=== PATIENT | male | born 1930 | race Caucasian/White ===

== ENCOUNTER 2017-01-12 01:01 | Inpatient (IN) ==
--- OUTSIDE RECORDS SUMMARY | 2017-01-12 01:12 | External Medical Summary ---
:1930 Author Organization [facility]. Summary purpose CCDA Sent to [facility] Chief Complaint and Reason for Visit No authorized Reason for Visit (Admitting Diagnosis) is available for this visit. Problem list No authorized problems tracked for continuity of care are available for this visit. Encounters No authorized problems tracked for encounter diagnoses are available for this visit. Medications No medications recorded for this patient visit Allergies, adverse reactions, alerts Allergen Category Ingredient Status Reaction Severity Onset No Known Allergies No Known Allergies No Known Allergies Active Immunizations No immunizations recorded for this patient visit Relevant diagnostic tests and/or laboratory data RESULTS Chemistry Group [id number]:00 Result Normal Range Units Sodium 145 134-145 mmol/L Potassium 4.2 3.6-5.0 mmol/L Chloride 106 98-107 mmol/L CO2 27 22-30 mmol/L Glucose 88 75-110 mg/dl BUN H 21 9-20 mg/dl Creatinine 1.49 0.8-1.7 mg/dl Calcium 8.6 8.4-10.2 mg/dl History of procedures Procedure Code Code Type Description Date Performed Performing Physician 95420 CPT-4 METABOLIC PANEL TOTAL 03-12-2015 MONICA MONSIVAIS Functional status No functional or cognitive status observations are available for this visit. Vital signs No authorized vital signs are available for this visit. Social history No Social History or smoking status observations were recorded for this visit. ( Unknown if ever smoked.) Treatment Plan No treatment plan text is available for this visit. Hospital discharge instructions No discharge instruction text is available for this visit.
--- OUTSIDE RECORDS SUMMARY | 2017-01-12 01:12 | External Medical Summary ---
:1930 Author Organization [facility]. Summary purpose CCDA Sent to [facility] Chief Complaint and Reason for Visit Admit Diagnosis 1 possible cellulitis Problem list No authorized problems tracked for [...] visit Relevant diagnostic tests and/or laboratory data No authorized results are available for this patient visit History of procedures No procedures recorded for this patient visit. Functional status No functional or cognitive status [...]
--- OUTSIDE RECORDS SUMMARY | 2017-01-12 01:12 | External Medical Summary ---
:1930 Author Organization [facility]. Summary purpose CCDA Sent to [facility] Chief Complaint and Reason for Visit No [...] for this patient visit History of procedures Procedure Code Code Type Description Date Performed Performing Physician 45655 CPT-4 THERAPEUTIC EXERCISES 11-10-2016 JYOTI RATZLAFF 14462 CPT-4 MANUAL THERAPY 11-10-2016 JYOTI RATZLAFF 45124 CPT-4 THERAPEUTIC EXERCISES 11-12-2016 JYOTI RATZLAFF 07018 CPT-4 MANUAL THERAPY 11-12-2016 JYOTI RATZLAFF 30081 CPT-4 THERAPEUTIC EXERCISES 11-16-2016 JYOTI RATZLAFF 82839 CPT-4 NEUROMUSCULAR 11-16-2016 JYOTI RATZLAFF REEDUCATION 65209 CPT-4 MANUAL THERAPY 11-16-2016 JYOTI RATZLAFF 66449 CPT-4 THERAPEUTIC EXERCISES 11-18-2016 JYOTI RATZLAFF 86868 CPT-4 THERAPEUTIC EXERCISES 11-24-2016 JYOTI RATZLAFF 60746 CPT-4 THERAPEUTIC EXERCISES 11-26-2016 JYOTI RATZLAFF 93113 CPT-4 NEUROMUSCULAR 11-26-2016 JYOTI RATZLAFF REEDUCATION 40404 CPT-4 MANUAL THERAPY 11-26-2016 JYOTI RATZLAFF 48176 CPT-4 THERAPEUTIC EXERCISES 11-30-2016 JYOTI RATZLAFF 99239 CPT-4 MANUAL THERAPY 11-30-2016 JYOTI RATZLAFF 62160 CPT-4 THERAPEUTIC EXERCISES 12-02-2016 JYOTI RATZLAFF 86666 CPT-4 MANUAL THERAPY 12-02-2016 JYOTI ABBOTT Functional status No functional or cognitive status [...]
--- OUTSIDE RECORDS SUMMARY | 2017-01-12 01:12 | External Medical Summary ---
:1930 Author Organization [facility]. Summary purpose CCDA Sent to [facility] Chief Complaint and Reason for Visit No [...] tests and/or laboratory data RESULTS Chemistry Group [id number] Result Normal Range Units Sodium 143 134-145 mmol/L Potassium 4.4 3.6-5.0 mmol/L Chloride 107 98-107 mmol/L CO2 H 31 22-30 mmol/L Glucose 86 75-110 mg/dl BUN H 26 9-20 mg/dl Creatinine 1.55 0.8-1.7 mg/dl eGFR 43 ml/min. Calcium 8.8 8.4-10.2 mg/dl History of procedures No procedures recorded for [...]
--- OUTSIDE RECORDS SUMMARY | 2017-01-12 01:12 | External Medical Summary ---
:1930 Author Organization [facility]. Summary purpose CCDA Sent to [facility] Chief Complaint and Reason for Visit No authorized Reason for Visit (Admitting Diagnosis) is available for this visit. Problem list No authorized problems tracked for continuity of care are available for this visit. Encounters No authorized problems tracked for encounter diagnoses are available for this visit. Medications No home medications recorded for this patient visit Allergies, [...] are available for this visit. Vital signs Type Value Date Respirations 20 93-10-192181:46 Pulse 65 10-85-458311:46 O2 Saturation 97% 05-27-687680:46 Systolic Blood Press 178mm/HG 71-06-411043:46 Diastolic Blood Pres 75mm/HG 33-37-818827:46 Social history No Social History or smoking status observations were recorded for this visit. ( Unknown if ever smoked.) Treatment Plan No treatment plan text is available for this visit. Hospital discharge instructions No discharge instruction text is available for this visit.
--- OUTSIDE RECORDS SUMMARY | 2017-01-12 01:12 | External Medical Summary ---
:1930 Author Organization [facility]. Summary purpose CCDA Sent to [facility] Chief Complaint and Reason for Visit [...] Relevant diagnostic tests and/or laboratory data RESULTS CBC :35:00 Result Normal Range Units WBC 6.87 5.8-10.8 x103/mm3 Neutrophil % 65.4 50-70 % Lymph % L 18.9 20-50 % Rusk % H 11.4 1.0-9.0 % Eosinophil % 3.9 0-4 % Basophil % 0.4 0-2 % Neutrophil # 4.49 3.0-7.0 x103/mm3 Lymph # 1.30 1.0-4.0 x103/mm3 Rusk # 0.78 0.0-0.8 x103/mm3 Eosinophil # 0.27 0-0.5 x103/mm3 Basophil # 0.03 0-0.2 x103/mm3 RBC L 4.01 4.60-6.20 x103/mm3 HGB L 12.8 14.0-18.0 g/dl HCT L 38.6 42.0-52.0 % MCV H 96.3 80-94 FL MCH H 31.9 27.0-31.0 pg MCHC 33.2 32.0-36.0 g/dl RDW 12.8 12-15 % Platelet 177 150-400 x103/mm3 MPV 9.6 6.0-10.0 FL Chemistry Group :35:00 Result Normal Range Units Sodium 145 134-145 mmol/L Potassium 4.0 3.6-5.0 mmol/L Chloride 104 98-107 mmol/L CO2 27 22-30 mmol/L Glucose 79 75-110 mg/dl BUN 20 9-20 mg/dl Creatinine 1.59 0.8-1.7 mg/dl Total Protein L 6.1 6.3-8.2 g/dl Albumin L 3.3 3.5-5.0 g/dl Calcium 8.6 8.4-10.2 mg/dl Alk Phos 73 38-126 U/L AST 19 14-36 U/L ALT 24 11-66 U/L T Bili .6 0.2-1.3 mg/dl A/G Ratio 1.2 Ratio Special Chemistry Group [id number]:00 Result Normal Range Units BNP 70.1 0-100 pg/ml History of procedures Procedure Code Code Type Description Date Performed Performing Physician 55712 CPT-4 COMPLETE CBC, 05-29-2015 ADY VALDES AUTOMATED 40538 CPT-4 COMPREHEN METABOLIC 05-29-2015 ADY VALDES PANEL 49314 CPT-4 NATRIURETIC PEPTIDE 05-29-2015 ADY VALDES Functional status No functional or cognitive status [...]
--- OUTSIDE RECORDS SUMMARY | 2017-01-12 01:12 | External Medical Summary ---
:1930 Author Organization [facility]. Summary purpose CCDA Sent to [facility] Chief Complaint and Reason for Visit No [...] tests and/or laboratory data RESULTS Chemistry Group [id number]:00 Result Normal Range Units Sodium 142 134-145 mmol/L Potassium 4.1 3.6-5.0 mmol/L Chloride 107 98-107 mmol/L CO2 22 22-30 mmol/L Glucose 98 75-110 mg/dl BUN H 27 9-20 mg/dl Creatinine H 1.94 0.8-1.7 mg/dl eGFR 33 ml/min. Calcium 9.1 8.4-10.2 mg/dl History of procedures No procedures [...]
--- OUTSIDE RECORDS SUMMARY | 2017-01-12 01:12 | External Medical Summary ---
:1930 Author Organization [facility]. Summary purpose CCDA Sent to [facility] Chief Complaint and Reason for Visit [...] tests and/or laboratory data RESULTS Chemistry Group [id number]:00 Result Normal Range Units Sodium 142 134-145 mmol/L Potassium L 3.5 3.6-5.0 mmol/L Chloride 101 98-107 mmol/L CO2 30 22-30 mmol/L Glucose 96 75-110 mg/dl BUN H 30 9-20 mg/dl Creatinine H 1.91 0.8-1.7 mg/dl eGFR 33 ml/min. Calcium 8.7 8.4-10.2 mg/dl History of procedures Procedure Code Code Type Description Date Performed Performing Physician 39875 CPT-4 METABOLIC PANEL TOTAL 10-14-2016 RAISSA MONSIVAIS Functional status No functional or cognitive [...]
--- OUTSIDE RECORDS SUMMARY | 2017-01-12 01:12 | External Medical Summary ---
:1930 Author Organization [facility]. Summary purpose CCDA Sent to [facility] Chief Complaint and Reason for Visit No authorized Reason for Visit (Admitting Diagnosis) is available for this visit. Problem list Condition Status Certainty Chronicity Onset .Congestive heart failure Discharged .Edema; Pedal Resolved .Syncope Resolved Encounters The following conditions tracked for encounter diagnoses were recorded for this visit: Finding or Diagnosis Status Certainty Chronicity Onset Cardiovascular - Actual/potential for Discharged altered; Fluid overload, CHF .Congestive heart failure Discharged .Edema; Pedal Resolved .Syncope Resolved Medications Discharge Medications Status Medication Directions Current acetaminophen (TYLENOL) 500 mg: TABLET 500 MG oral EVERY FOUR HOURS NEEDED for PAIN OR FEVER Current ASPIRIN 81 mg: TAB CHEW 81 MG oral DAILY Current clopidogrel (PLAVIX) 75 mg: TABLET 75 MG oral DAILY Current furosemide (LASIX): TABLET 20 MG oral DAILY Current potassium chloride (KLOR-CON) 10 mEq: 10 MEQ oral DAILY Tab ER 12HR Current PreserVision Lutein 226 mg-200 unit-5 1 tab(s) oral DAILY mg-0.8 mg capsule Stopped aspirin 81 mg chewable tablet 81 miligram(s) oral DAILY Stopped clopidogrel 75 mg tablet 75 miligram(s) oral DAILY Stopped Fish Oil 1,000 mg capsule 1000 miligram(s) oral DAILY Stopped Lasix 40 mg tablet 40 miligram(s) oral DAILY Stopped potassium 99 mg tablet 99 miligram(s) oral DAILY Allergies, adverse reactions, alerts Allergen Category Ingredient Status Reaction Severity Onset No Known Allergies No Known Allergies No Known Allergies Active Immunizations No immunizations recorded for this patient visit Relevant diagnostic tests and/or laboratory data RESULTS :41:48 Discharge Summary [place] Chemistry Group :55:00 Result Normal Range Units Sodium 142 134-145 mmol/L Potassium 4.5 3.6-5.0 mmol/L Chloride 107 98-107 mmol/L CO2 26 22-30 mmol/L Glucose 97 75-110 mg/dl BUN H 32 9-20 mg/dl Creatinine H 1.76 0.8-1.7 mg/dl eGFR 37 ml/min. Calcium L 8.3 8.4-10.2 mg/dl :33:00 Result Normal Range Units Sodium 140 134-145 mmol/L Potassium 4.8 3.6-5.0 mmol/L Chloride 107 98-107 mmol/L CO2 26 22-30 mmol/L Glucose 100 75-110 mg/dl BUN H 34 9-20 mg/dl Creatinine H 1.78 0.8-1.7 mg/dl eGFR 36 ml/min. Calcium L 8.3 8.4-10.2 mg/dl :00:00 Result Normal Range Units Sodium 143 134-145 mmol/L Potassium 4.6 3.6-5.0 mmol/L Chloride 103 98-107 mmol/L CO2 30 22-30 mmol/L Glucose 104 75-110 mg/dl BUN H 43 9-20 mg/dl Creatinine H 2.05 0.8-1.7 mg/dl eGFR 31 ml/min. Calcium 8.8 8.4-10.2 mg/dl :50:00 Result Normal Range Units Sodium 142 134-145 mmol/L Potassium 4.8 3.6-5.0 mmol/L Chloride 103 98-107 mmol/L CO2 28 22-30 mmol/L Glucose 96 75-110 mg/dl BUN H 41 9-20 mg/dl Creatinine H 2.04 0.8-1.7 mg/dl eGFR 31 ml/min. Calcium 8.7 8.4-10.2 mg/dl 56-89-469780:05:00 Result Normal Range Units Sodium 138 134-145 mmol/L Potassium 4.8 3.6-5.0 mmol/L Chloride 103 98-107 mmol/L CO2 29 22-30 mmol/L Glucose 96 75-110 mg/dl BUN H 33 9-20 mg/dl Creatinine H 1.82 0.8-1.7 mg/dl eGFR 35 ml/min. Calcium L 8.3 8.4-10.2 mg/dl :55:00 Result Normal Range Units Sodium 141 134-145 mmol/L Potassium 4.5 3.6-5.0 mmol/L Chloride 104 98-107 mmol/L CO2 27 22-30 mmol/L Glucose 92 75-110 mg/dl BUN H 29 9-20 mg/dl Creatinine 1.57 0.8-1.7 mg/dl eGFR 42 ml/min. Calcium L 8.2 8.4-10.2 mg/dl History of procedures No procedures recorded for this patient visit. Functional status Functional Status Finding Observation Time Dexterity Left-handed :28 Weight Bearing Statu Full 77-61-008412:44 Transferring/Ambulat Uses a Device :28 Bathing Independent :28 Dressing Independent 08-18-781028:28 Eating Independent : Drinking Independent : Toileting Independent : Able to Turn Self in Independent : Stairs Independent :28 Walker Yes :28 Cognitive Status Finding Observation Time Level of Consciousne Alert :29 Oriented to Person Yes :[address] Yes :29 Oriented to Time Yes :29 Dizziness With Activity 66-71-474902:50 Comment: pt reports dizziness has improved. Eyes - [place] Yes :29 Vital signs Type Value Date Respirations 16 :26 Pulse 72 :26 O2 Saturation 94% :26 Systolic Blood Press 116mm/HG :26 Diastolic Blood Pres 67mm/HG :26 Temperature (Fahr) 97.7Degrees :26 Height 71in :27 Weight 221.3LB :27 Social history Type Value Smoking Status NEVER SMOKER Treatment Plan No treatment plan text is available for this visit. Hospital discharge instructions Diagnosis CHF Diet low sodium Activity Level as tolerated Flu Vaccine Given Current/Not Needed Pneumonia Vaccine Gi Current/Not Needed Follow up with Dr ALLAN Appointment Date and 1:30 PM Other Instructions Return or call for any return, increased or new symptoms. Elevate legs. Wear compression as needed for swelling. Lotion to lower legs as needed.
--- OUTSIDE RECORDS SUMMARY | 2017-01-12 01:12 | External Medical Summary ---
:1930 Author Organization [facility]. Summary purpose CCDA Sent to [facility] [...]
--- OUTSIDE RECORDS SUMMARY | 2017-01-12 01:12 | External Medical Summary ---
:1930 Author Organization [facility]. Summary purpose CCDA Sent to [facility] Chief Complaint and Reason for Visit [...] Code Type Description Date Performed Performing Physician 92698 CPT-4 THERAPEUTIC EXERCISES 02-11-2015 MONICA GREENE 71173 CPT-4 THERAPEUTIC EXERCISES 02-12-2015 MONICA GREENE 83455 CPT-4 GAIT TRAINING THERAPY 02-11-2015 MONICA GREENE 16478 CPT-4 GAIT TRAINING THERAPY 02-12-2015 MONICA GREENE 69917 CPT-4 THERAPEUTIC EXERCISES 02-14-2015 MONICA GREENE 64339 CPT-4 THERAPEUTIC ACTIVITIES 02-12-2015 MONICA GREENE 70015 CPT-4 THERAPEUTIC ACTIVITIES 02-14-2015 MONICA GREENE Functional status No functional or cognitive status [...]
--- OUTSIDE RECORDS SUMMARY | 2017-01-12 01:12 | External Medical Summary ---
:1930 Author Organization [employer] Care Team Providers Name Role Phone Sarbjit Casanova Provider Role Unavailable Allergies, Adverse Reactions, Alerts Substance Reaction Event Type N.K.D.A. 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 Assessment CVA (cerebral vascular accident) I63.9 Active Problem CAD (coronary artery disease) I25.10 Active Problem S/P drug eluting coronary stent Z95.5 Active placement Problem CVA (cerebral vascular accident) I63.9 Active Problem Coronary Artery Disease 414.01 Active Assessment CAD (coronary artery disease) I25.10 Active Problem s/p stenting, coronary V45.82 Active Problem Carotid Disease 437.9 Active Medications Medication Code Code Instructions Start End Date Status Dosage System Date Furosemide [facility] 28782-56 40 MG Orally qod 1/2 tab 99-25 [place] [address]-77 Orally not defined AREDS 32-62 Fish Oil [facility] 67289-36 1200 MG Orally 1 capsule 922 [place] [address]-47 99 MG Orally 1 tablet 94-01 [place] [address]-31 81 MG Orally 1 tablet 74-68 [place] B-[place] [address]-69 1000 MCG Orally 1 tablet 17-01 Once a day Clopidogrel [facility] 40365-64 75 MG Orally 1 tablet Bisulfate 14-05 Once a day Procedures Procedure Coding System Code Date Office Visit, Est Pt., Level 4 CPT-4 26368 Dec 20, 2014 Vital Signs Date/Time: Dec 20, 2014 BMI 33.67 Index Weight 215 lbs Height 67 in Cardiac Monitoring Heart Rate 68 /min Oximetry 95 % Blood Pressure Diastolic 74 mm Hg Blood Pressure Systolic 126 mm Hg Results No Known Results Summary Purpose [employer] Submission
--- OUTSIDE RECORDS SUMMARY | 2017-01-12 01:12 | External Medical Summary ---
:1930 Author Organization [facility]. Summary purpose CCDA Sent to [facility] Chief Complaint and Reason for Visit Admit Diagnosis 1 cellulitis Problem list No authorized problems tracked [...]
[2017-01-12] MEDS ORDERED: HYDROMORPHONE 2 MG/ML INJECTION IVP ONE (01:13)
--- OUTSIDE RECORDS SUMMARY | 2017-01-12 01:13 | External Medical Summary ---
:1930 Author Organization [facility]. Summary purpose CCDA Sent to [facility] Chief Complaint and Reason for Visit [...] tests and/or laboratory data RESULTS Chemistry Group [id number] Result Normal Range Units Sodium 143 134-145 mmol/L Potassium 4.1 3.6-5.0 mmol/L Chloride 103 98-107 mmol/L CO2 29 22-30 mmol/L Glucose 88 75-110 mg/dl BUN H 21 9-20 mg/dl Creatinine 1.67 0.8-1.7 mg/dl Calcium 8.7 8.4-10.2 mg/dl History of procedures Procedure Code Code Type Description Date Performed Performing Physician 38119 CPT-4 METABOLIC PANEL TOTAL 05-30-2015 MONICA MONSIVAIS Functional status No functional or [...]
--- OUTSIDE RECORDS SUMMARY | 2017-01-12 01:13 | External Medical Summary ---
:1930 Author Organization [facility]. Summary purpose CCDA Sent to [facility] Chief Complaint and Reason for [...] Code Type Description Date Performed Performing Physician 94376 CPT-4 THERAPEUTIC EXERCISES 10-29-2016 JYOTI ABBOTT 97096 CPT-4 NEUROMUSCULAR 10-29-2016 JYOTI ABBOTT REEDUCATION 71321 CPT-4 MANUAL THERAPY 10-29-2016 JYOTI ABBOTT 12479 CPT-4 PT EVAL MOD COMPLEX 30 10-29-2016 JYOTI ABBOTT [place] 22378 CPT-4 THERAPEUTIC EXERCISES 11-03-2016 JYOTI ABBOTT 28143 CPT-4 THERAPEUTIC EXERCISES 11-05-2016 JYOTI ABBOTT 66152 CPT-4 MANUAL THERAPY 11-05-2016 JYOTI ABBOTT Functional status No functional or [...]
--- OUTSIDE RECORDS SUMMARY | 2017-01-12 01:13 | External Medical Summary ---
:1930 Author Organization [facility]. Summary [facility] tests and/or laboratory data RESULTS Chemistry Group [id number]:00 Result Normal Range Units Sodium H 147 134-145 mmol/L Potassium 4.2 3.6-5.0 mmol/L Chloride 104 98-107 mmol/L CO2 30 22-30 mmol/L Glucose 91 75-110 mg/dl BUN H 35 9-20 mg/dl Creatinine H 2.07 0.8-1.7 mg/dl Calcium 8.7 8.4-10.2 mg/dl History of procedures Procedure Code Code Type Description Date Performed Performing Physician 30291 CPT-4 METABOLIC PANEL TOTAL 06-02-2015 MONICA MARTINEZ LOI Functional status No functional or cognitive status [...]
--- OUTSIDE RECORDS SUMMARY | 2017-01-12 01:13 | External Medical Summary ---
:1930 Author Organization [facility]. Summary purpose CCDA Sent to [facility] Chief Complaint and Reason for Visit No [...] Code Type Description Date Performed Performing Physician 03708 CPT-4 PT EVALUATION 12-23-2014 MONICA GREENE 54694 CPT-4 THERAPEUTIC EXERCISES 12-23-2014 MONICA GREENE 88538 CPT-4 NEUROMUSCULAR 12-23-2014 MONICA GREENE REEDUCATION 94154 CPT-4 OT EVALUATION 12-26-2014 MONICA GREENE 62213 CPT-4 THERAPEUTIC EXERCISES 12-26-2014 MONICA GREENE 76403 CPT-4 THERAPEUTIC ACTIVITIES 12-26-2014 MONICA GREENE 04678 CPT-4 THERAPEUTIC EXERCISES 12-30-2014 MONICA GREENE 63938 CPT-4 THERAPEUTIC EXERCISES 12-31-2014 MONICA GREENE 33756 CPT-4 THERAPEUTIC ACTIVITIES 12-31-2014 MONICA GREENE Functional status No functional or [...]
--- OUTSIDE RECORDS SUMMARY | 2017-01-12 01:13 | External Medical Summary ---
:1930 Author Organization [facility]. Summary purpose CCDA Sent to [facility] Chief Complaint and Reason for Visit [...]
--- OUTSIDE RECORDS SUMMARY | 2017-01-12 01:13 | External Medical Summary ---
:1930 Author Organization [facility]. Summary purpose CCDA Sent to [facility] Chief Complaint and Reason for Visit [...] diagnostic tests and/or laboratory data RESULTS CBC [id number]:25:00 WBC 10.38 Neutrophil % H 76.5 Lymph % L 12.6 Anderson % 8.4 Eosinophil % 2.3 Basophil % 0.2 Neutrophil # H 7.94 Lymph # 1.31 Anderson # H 0.87 Eosinophil # 0.24 Basophil # 0.02 RBC L 4.50 HGB 14.3 HCT 43.0 MCV H 95.6 MCH H 31.8 MCHC 33.3 RDW 12.8 Platelet 170 MPV 8.7 Chemistry Group [id number] Sodium 140 Potassium 4.0 Chloride H 108 CO2 25 Glucose 104 BUN 19 Creatinine 1.5 Calcium 8.9 History of procedures Procedure Code Code Type Description Date Performed Performing Physician 49521 CPT-4 METABOLIC PANEL TOTAL 12-13-2014 [place] [address] CPT-4 COMPLETE CBC 12-13-2014 [facility] AUTOMATED Functional status No functional or cognitive status [...]
--- OUTSIDE RECORDS SUMMARY | 2017-01-12 01:13 | External Medical Summary ---
:1930 Author Organization [facility]. Summary purpose CCDA Sent to [facility] Chief Complaint and Reason for Visit Admit Diagnosis 1 Cellulitis Problem list No authorized problems tracked for [...]
--- OUTSIDE RECORDS SUMMARY | 2017-01-12 01:13 | External Medical Summary ---
:1930 Author Organization [facility]. Summary purpose CCDA Sent to [facility] Chief Complaint and Reason for Visit [...] Code Type Description Date Performed Performing Physician 93234 CPT-4 THERAPEUTIC EXERCISES 01-08-2015 MONICA GREENE 18801 CPT-4 GAIT TRAINING THERAPY 01-08-2015 MONICA GREENE 47691 CPT-4 THERAPEUTIC EXERCISES 01-08-2015 MONICA GREENE 51186 CPT-4 THERAPEUTIC EXERCISES 01-10-2015 MONICA GREENE 07483 CPT-4 THERAPEUTIC ACTIVITIES 01-08-2015 MONICA GREENE 62742 CPT-4 THERAPEUTIC ACTIVITIES 01-10-2015 MONICA GREENE 50516 CPT-4 THERAPEUTIC EXERCISES 01-14-2015 MONICA GREENE 95631 CPT-4 NEUROMUSCULAR 01-14-2015 MONICA GREENE REEDUCATION 23197 CPT-4 GAIT TRAINING THERAPY 01-14-2015 MONICA GREENE 15311 CPT-4 THERAPEUTIC EXERCISES 01-15-2015 MONICA GREENE 98193 CPT-4 THERAPEUTIC EXERCISES 01-17-2015 MONICA GREENE 65787 CPT-4 NEUROMUSCULAR 01-17-2015 MONICA GREENE REEDUCATION 19169 CPT-4 THERAPEUTIC ACTIVITIES 01-15-2015 MONICA GREENE 52527 CPT-4 THERAPEUTIC ACTIVITIES 01-17-2015 MONICA GREENE 98423 CPT-4 SELF CARE MNGMENT 01-15-2015 MONICA GREENE TRAINING 36270 CPT-4 THERAPEUTIC EXERCISES 01-21-2015 MONICA GREENE 54406 CPT-4 NEUROMUSCULAR 01-21-2015 MONICA MARTINEZ REEDUCATION 21599 CPT-4 THERAPEUTIC ACTIVITIES 01-24-2015 MONICA GREENE 01982 CPT-4 THERAPEUTIC EXERCISES 01-28-2015 MONICA MARTINEZ 04895 CPT-4 NEUROMUSCULAR 01-28-2015 MONICA MARTINEZ REEDUCATION 81275 CPT-4 THERAPEUTIC EXERCISES 01-28-2015 MONICA MARTINEZ 04626 CPT-4 THERAPEUTIC ACTIVITIES 01-28-2015 MONICA MARTINEZ 72483 CPT-4 THERAPEUTIC ACTIVITIES 01-29-2015 MONICA GREENE Functional status No functional or [...]
--- OUTSIDE RECORDS SUMMARY | 2017-01-12 01:13 | External Medical Summary ---
:1930 Author Organization [facility]. Summary purpose CCDA Sent to [facility] Chief Complaint and Reason for Visit [...] tests and/or laboratory data RESULTS Chemistry Group [id number] Result Normal Range Units Sodium 145 134-145 mmol/L Potassium 4.4 3.6-5.0 mmol/L Chloride H 109 98-107 mmol/L CO2 26 22-30 mmol/L Glucose L 73 75-110 mg/dl BUN 18 9-20 mg/dl Creatinine 1.4 0.8-1.7 mg/dl Calcium 8.4 8.4-10.2 mg/dl History of procedures Procedure Code Code Type Description Date Performed Performing Physician 88254 CPT-4 METABOLIC PANEL TOTAL 02-21-2015 MONICA MONSIVAIS Functional status No functional or [...]
--- OUTSIDE RECORDS SUMMARY | 2017-01-12 01:13 | External Medical Summary ---
:1930 Author Organization [facility]. Summary purpose CCDA Sent to [facility] Chief Complaint and Reason for Visit [...] tests and/or laboratory data RESULTS Chemistry Group [id number] Result Normal Range Units Sodium 144 134-145 mmol/L Potassium 3.8 3.6-5.0 mmol/L Chloride 107 98-107 mmol/L CO2 27 22-30 mmol/L Glucose 89 75-110 mg/dl BUN H 26 9-20 mg/dl Creatinine 1.61 0.8-1.7 mg/dl eGFR 41 ml/min. Calcium 8.6 8.4-10.2 mg/dl History of procedures Procedure Code Code Type Description Date Performed Performing Physician [id number] CPT-4 METABOLIC PANEL TOTAL 05-19-2016 [facility] Functional status No functional or cognitive status [...]
--- OUTSIDE RECORDS SUMMARY | 2017-01-12 01:13 | External Medical Summary ---
:1930 Author Organization [facility]. Summary purpose CCDA Sent to [facility] Chief Complaint and Reason for Visit Admit Diagnosis 1 FALL, DIZZINESS, EDEMA Problem list Condition Status Certainty Chronicity Onset .Dizziness Resolved .Congestive heart failure Discharged .Edema Discharged Encounters The following conditions tracked for encounter diagnoses were recorded for this visit: Finding or Diagnosis Status Certainty Chronicity Onset .Dizziness Resolved .Congestive heart failure Discharged .Edema Discharged Medications No medications recorded for this patient visit Allergies, adverse reactions, alerts Allergen Category Ingredient Status Reaction Severity Onset No Known Allergies No Known Allergies No Known Allergies Active Immunizations No immunizations recorded for this patient visit Relevant diagnostic tests and/or laboratory data RESULTS CBC [id number]:00 Result Normal Range Units WBC L 4.77 5.8-10.8 x103/mm3 Neutrophil % 63.6 50-70 % Lymph % L 19.1 20-50 % [place] % H 11.9 1.0-9.0 % Eosinophil % H 4.8 0-4 % Basophil % 0.6 0-2 % Neutrophil # 3.03 3.0-7.0 x103/mm3 Lymph # L 0.91 1.0-4.0 x103/mm3 [place] # 0.57 0.0-0.8 x103/mm3 Eosinophil # 0.23 0-0.5 x103/mm3 Basophil # 0.03 0-0.2 x103/mm3 RBC L 3.88 4.60-6.20 x103/mm3 HGB L 12.3 14.0-18.0 g/dl HCT L 37.6 42.0-52.0 % MCV H 96.9 80-94 FL MCH H 31.7 27.0-31.0 pg MCHC 32.7 32.0-36.0 g/dl RDW 12.8 12-15 % Platelet L 126 150-400 x103/mm3 MPV 8.9 6.0-10.0 FL [id number]:10:00 Result Normal Range Units WBC L 5.72 5.8-10.8 x103/mm3 Neutrophil % H 71.2 50-70 % Lymph % L 15.9 20-50 % [place] % H 11.2 1.0-9.0 % Eosinophil % 1.4 0-4 % Basophil % 0.3 0-2 % Neutrophil # 4.07 3.0-7.0 x103/mm3 Lymph # L 0.91 1.0-4.0 x103/mm3 [place] # 0.64 0.0-0.8 x103/mm3 Eosinophil # 0.08 0-0.5 x103/mm3 Basophil # 0.02 0-0.2 x103/mm3 RBC L 3.81 4.60-6.20 x103/mm3 HGB L 12.0 14.0-18.0 g/dl HCT L 37.1 42.0-52.0 % MCV H 97.4 80-94 FL MCH H 31.5 27.0-31.0 pg MCHC 32.3 32.0-36.0 g/dl RDW 13.1 12-15 % Platelet L 124 150-400 x103/mm3 MPV 9.0 6.0-10.0 FL [id number]:10:00 Result Normal Range Units WBC 6.33 5.8-10.8 x103/mm3 Neutrophil % H 80.8 50-70 % Lymph % L 8.1 20-50 % [place] % H 9.3 1.0-9.0 % Eosinophil % 1.3 0-4 % Basophil % 0.5 0-2 % Neutrophil # 5.12 3.0-7.0 x103/mm3 Lymph # L 0.51 1.0-4.0 x103/mm3 [place] # 0.59 0.0-0.8 x103/mm3 Eosinophil # 0.08 0-0.5 x103/mm3 Basophil # 0.03 0-0.2 x103/mm3 RBC L 3.80 4.60-6.20 x103/mm3 HGB L 12.2 14.0-18.0 g/dl HCT L 36.9 42.0-52.0 % MCV H 97.1 80-94 FL MCH H 32.1 27.0-31.0 pg MCHC 33.1 32.0-36.0 g/dl RDW 13.0 12-15 % Platelet L 124 150-400 x103/mm3 MPV 8.8 6.0-10.0 FL Urinalysis :45:00 Result Normal Range Units Site VOID Color Yellow Urine Appearance Clear Specific [place] 1.020 1.005-1.030 pH 5.0 5.0-9.0 Protein AB 1+ Negative Glucose Negative Negative Ketones AB Trace Negative Bilirubin Negative Negative Blood AB Trace-lyse Negative Nitrite Negative Negative Urobilinogen 0.2 0.20 mg/dl Leukocyte Negative Negative SPECIMEN WILL NOT BE CULTURED UNLESS REQUESTED BY PHYSICIAN. 04/24/16[facility] Chemistry Group [id number]:00 Result Normal Range Units Sodium 141 134-145 mmol/L Potassium 3.7 3.6-5.0 mmol/L Chloride 103 98-107 mmol/L CO2 29 22-30 mmol/L Glucose 97 75-110 mg/dl BUN H 28 9-20 mg/dl Creatinine 1.57 0.8-1.7 mg/dl eGFR 42 ml/min. Calcium L 8.1 8.4-10.2 mg/dl :20:00 Result Normal Range Units Sodium 141 134-145 mmol/L Potassium 3.6 3.6-5.0 mmol/L Chloride 105 98-107 mmol/L CO2 28 22-30 mmol/L Glucose 95 75-110 mg/dl BUN H 26 9-20 mg/dl Creatinine 1.64 0.8-1.7 mg/dl eGFR 40 ml/min. Calcium L 7.6 8.4-10.2 mg/dl :10:00 Result Normal Range Units Sodium 143 134-145 mmol/L Potassium 3.7 3.6-5.0 mmol/L Chloride H 108 98-107 mmol/L CO2 25 22-30 mmol/L Glucose 97 75-110 mg/dl BUN H 24 9-20 mg/dl Creatinine 1.67 0.8-1.7 mg/dl eGFR 39 ml/min. Calcium L 8.2 8.4-10.2 mg/dl :10:00 Result Normal Range Units Sodium 144 134-145 mmol/L Potassium 4.2 3.6-5.0 mmol/L Chloride H 109 98-107 mmol/L CO2 24 22-30 mmol/L Glucose 93 75-110 mg/dl BUN H 23 9-20 mg/dl Creatinine 1.51 0.8-1.7 mg/dl eGFR 44 ml/min. Total Protein L 5.9 6.3-8.2 g/dl Albumin L 3.0 3.5-5.0 g/dl Calcium 8.6 8.4-10.2 mg/dl Alk Phos 68 38-126 U/L AST 16 14-36 U/L ALT 22 11-66 U/L T Bili 1.0 0.2-1.3 mg/dl A/G Ratio 1.0 Ratio Special Chemistry Group :10:00 Result Normal Range Units Troponin I < 0.06 ng/ml NEGATIVE - 0.06-0.30 ng/ml INCONCLUSIVE - 0.31-0.64 ng/ml; Suggest Repeating in 2-4 hours POSITIVE - >0.64 ng/ml; Probable AMI :10:00 Result Normal Range Units Troponin I < 0.06 ng/ml NEGATIVE - 0.06-0.30 ng/ml INCONCLUSIVE - 0.31-0.64 ng/ml; Suggest Repeating in 2-4 hours POSITIVE - >0.64 ng/ml; Probable AMI BNP 91.7 0-100 pg/ml Urinalysis with Microscopic :45:00 Result Normal Range Units Site VOID Color Yellow Urine Appearance Clear Specific [place] 1.020 1.005-1.030 pH 5.0 5.0-9.0 Protein AB 1+ Negative Glucose Negative Negative Ketones AB Trace Negative Bilirubin Negative Negative Blood AB Trace-lyse Negative Nitrite Negative Negative Urobilinogen 0.2 0.20 mg/dl Leukocyte Negative Negative SPECIMEN WILL NOT BE CULTURED UNLESS REQUESTED BY PHYSICIAN. 04/24/16[facility] History of procedures No procedures recorded for this patient visit. Functional status Functional Status Finding Observation Time Dexterity Left-handed :09 Weight Bearing Statu Full [id number] Transferring/Ambulat Uses a Device :09 Bathing Independent :09 Dressing Independent :09 Eating Independent :09 Drinking Independent :09 Toileting Independent :09 Able to Turn Self in Independent :09 Stairs Independent :09 Walker Yes :09 Cognitive Status Finding Observation Time Level of Consciousne Alert :52 Oriented to Person Yes :[address] Yes :52 Oriented to Time Yes :52 Eyes - [place] Yes :30 Vital signs Type Value Date Respirations 16 :30 Pulse 96 :32 O2 Saturation 96% :30 Systolic Blood Press 124mm/HG :32 Diastolic Blood Pres 69mm/HG :32 Temperature (Fahr) 97.7Degrees :30 Height 71in :16 Weight 226.9LB [id number]:16 Social history Type Value Smoking Status NEVER SMOKER Treatment Plan No treatment plan text is available for this visit. Hospital discharge instructions No discharge instruction text is available for this visit.
--- OUTSIDE RECORDS SUMMARY | 2017-01-12 01:13 | External Medical Summary ---
:1930 Author Organization [employer] Care Team Providers Name Role Phone Edilberto Sarbjit Provider Role Unavailable Allergies, Adverse Reactions, Alerts Substance Reaction Event Type N.K.D.A. Info Not Available Non Drug Allergy Problems Problem Type Condition ICD-9 Code Onset Dates Condition Status Problem Carotid Disease 437.9 Active Problem Coronary Artery Disease 414.01 Active Problem s/p stenting, coronary V45.82 Active Assessment Carotid Disease 437.9 Active Assessment Coronary Artery Disease 414.01 Active Assessment s/p stenting, coronary V45.82 Active Medications Medication Code Code Instructions Start End Date Status Dosage System Date Potassium [facility] 58019-95 99 MG Orally 1 tablet 94-01 [place] [address]-77 40 MG Orally 1 tablet 99-25 Once a day Clopidogrel [facility] 92849-04 75 MG Orally 1 tablet Bisulfate 14-05 [place] [address]-22 81 MG Orally 1 tablet 74-68 Once a day Fish Oil [facility] 08203-16 1200 MG Orally 1 capsule 922 Once a day PreserVision [facility] 40482-92 Orally not defined AREDS 32-62 Vitamin B-12 [facility] 06789-07 1000 MCG Orally 1 tablet 17-01 Once a day Procedures Procedure Coding System Code Date Office Visit, New Pt., Level 3 CPT-4 35531 July 05, 2014 Vital Signs Date/Time: July 05, 2014 BMI 33.20 Index Weight 212 lbs Height 67 in Cardiac Monitoring Heart Rate 77 /min Oximetry 96% % Blood Pressure Diastolic 60 mm Hg Blood Pressure Systolic 122 mm Hg Results No Known Results Summary Purpose [employer] Submission
[2017-01-12] MEDS ORDERED: ONDANSETRON 4 MG/2 ML INJECTION IVP ONE ×2 (01:14→06:00)
--- NOTE | 2017-01-12 01:15 | Emergency Department Report ---
Lower Extremity Injury HPI - General Stated Complaint: Fall,Hip pain Time Seen by Provider: 01/12/17 01:07 Source: patient, EMS Mode of arrival: EMS Limitations: no limitations - History of Present Illness HPI Narrative: Pt fell getting out of his chair at the [place] in [place], injuring his left hip. Pain 3/10 without movement, 8/10 with movement. After full interview, patient thinks he might of hit his head, has not complained of mild stiffness in the neck. - Related Data Allergies Allergy/AdvReac Type Severity Reaction Status Date / Time No Known Allergies Allergy Verified 01/12/17 01:20 [facility] Patient Stated Medical History Cerebrovascular Accident Yes Dementia Yes Macular Degeneration Yes Coronary Artery Disease Yes Myocardial Infarction Yes PVD Leg Cellulitis - Social History Smoking status: Never smoker Substance use type: does not use Alcohol intake frequency: does not drink Physical Exam - Limitations Limitations: no limitations - General General appearance: alert - Normal Exams: Head:: Normocephalic without trauma Eyes:: Pupils are PERRLA w/ EOMI, No scleral icterus, irritation, or foreign bodies noted ENMT:: No facial trauma, nasal exudates, pharyngeal erythema, or exudates are noted Chest/Respirations:: Clear all yeager, with good airflow, and symmetry bilaterally Cardiovascular:: Regular rate and rhythm, without murmur or gallop, Pulses 2+ all extremities, capillary refill, <2 seconds all extremities Abdomen:: Bowel sounds positive, soft, non-tender, non-distended, no hepatosplenomegaly, masses or bruits noted Lymphatic:: No lymphadenopathy, or lymphedema noted Integumentary:: No rashes, hives, or bruising noted, hair and nails, without abnormality Neurological:: Patient is alert, and oriented, cranial nerves, motor/sensory/ cerebellar, exams w/o gross deficits, to observation Psychiatric:: Patient exhibits, appropriate attention, emotion and affect - Head Head exam: atraumatic, normocephalic, normal inspection - Neck Neck exam: Present: normal inspection, full ROM, trachea midline, tenderness - Extremities Exam Extremities exam: Present: other (floor history has decreased range of motion of the hip, is shortened and externally rotated. Patient has significant tenderness over the left lateral posterior hip, left posterior pelvis, and left femur.) Course Vital Signs Temperature 97.4 F 01/12/17 01:03 Pulse Rate 73 12/06/17 01:03 Respiratory Rate 14 01/12/17 01:03 Blood Pressure 141/64 H 01/12/17 01:03 Pulse Oximetry 94 01/12/17 01:03 Temperature 97.4 F 01/12/17 01:03 Pulse Rate 88 01/12/17 01:45 Respiratory Rate 16 01/12/17 01:45 Blood Pressure 141/64 H 01/12/17 01:45 Pulse Oximetry 100 01/12/17 01:45 Extremity Injury, Lower - MDM Narrative Medical decision making narrative: Patient given Dilaudid 0.[address] head/C-spine - n Pelvis/left femur - comminuted left intertrochanteric hip fracture Dr. Dwyer consulted, Dr. Holland admitting. - Lab Data Result diagrams: 01/12/17 01:32 01/12/17 01:32 Lab Results 01/12/17 01/12/17 Range/Units 01:32 01:32 WBC 8.5 (4.5-11.0) T/MM3 RBC 4.53 (4.50-5.90) M/MM3 Hgb 14.2 (13.5-17.5) GM/DL Hct 44.0 (41-53) % MCV 97.1 (80-100) UM3 MCH 31.3 (26-34) UUG MCHC 32.3 (31-37) GM/DL RDW Std Deviation 45.7 (36.9-50.2) FL Plt Count 187 (130-400) T/MM3 MPV 8.4 L (9.4-12.4) UM3 Immature Gran % (Auto) 0.5 (0.0-0.5) % Neut % (Auto) 73.8 H (33-66) % Lymph % (Auto) 15.6 L (23-45) % [place] % (Auto) 6.6 (0-9.0) % Eos % (Auto) 3.0 (0-4) % Baso % (Auto) 0.5 (0-2) % Neut # (Auto) 6.3 (1.8-7.7) T/MM3 Lymph # (Auto) 1.3 (1-4.8) T/MM3 [place] # (Auto) 0.6 (0-0.8) T/MM3 Eos # (Auto) 0.3 (0-0.5) T/MM3 Baso # (Auto) 0.0 (0-0.2) T/MM3 Abs Immat Gran (auto) 0.04 H (0.00-0.03) T/MM3 Turbidity < 20 (0-20) Sodium 144 (134-144) MEQ/L Potassium 4.3 (3.6-5) MEQ/L Chloride 108 H (98-107) MEQ/L Carbon Dioxide 28 (22-30) MEQ/L Anion Gap 8 (5-15) MEQ/L BUN 30.0 H (9-20) MG/DL Creatinine 1.8 H (0.8-1.5) MG/DL GFR Calculation 36 BUN/Creatinine Ratio 17 (6-26) RATIO Glucose 111 H (75-110) MG/DL Calculated Osmolality 284 H (261-280) MOSM/KG Calcium 8.8 (8.4-10.2) MG/DL Total Bilirubin 0.40 (0.20-1.30) MG/DL Conjugated Bilirubin 0.00 (0.00-0.30) MG/DL Unconjugated Bilirubin 0.20 (0.00-1.1) MG/DL Icterus Index < 2 (0-7) AST 16 L (17-59) U/L ALT 25 (21-72) U/L Alkaline Phosphatase 88 (38-126) U/L Total Protein 7.1 (6.3-8.2) G/DL Albumin 3.7 (3.5-5.0) G/DL Globulin 3.4 (2.4-3.6) G/DL Albumin/Globulin Ratio 1.1 (1.1-2.2) RATIO Specimen Hemolysis < 15 (0-25) Disposition Clinical Impression: Intertrochanteric fracture of left hip Qualifiers: Encounter type: initial encounter Fracture type: closed Fracture alignment: nondisplaced Qualified Code(s): S72.145A - Nondisplaced intertrochanteric fracture of left femur, initial encounter for closed fracture [place]: 02 [place] [facility] [place] Care Condition: Stable Referrals: Attila Johnson [Family Provider] - - Seen By: physician
[2017-01-12] MEDS: SALINE FLUSH 10ml SYRINGE IVF PRN ×2 (01:27→03:51)
[2017-01-12] MEDS ORDERED: HYDROMORPHONE 2 MG/ML INJECTION IVP PRN (03:18)
[2017-01-12] MEDS: LR 1,000 ML IV SCH ×2 (03:48→15:06)
--- NOTE | 2017-01-12 04:47 | History & Physical Report ---
History of Present Illness Date: 01/12/17 Chief complaint: fall HPI: 86 yo male who fell as he was going to the bathroom around 1230 this morning. He was at [facility] after a hosptialization for cellullitis on both legs. All of the history comes from the who was at the bedside since the pt is very hard of hearing and didn't answer any of the questions. The pain is only present when he is moving the left leg. When he fell , the pt landed on his left side, questionable injury to the head. He was doing well on rehab. Review of Systems ROS unobtainable: due to mental status [facility] Patient Stated Medical History Cerebrovascular Accident Yes Dementia Yes Hearing Loss Yes: bilateral hearing aids Macular Degeneration Yes Coronary Artery Disease Yes Myocardial Infarction Yes: stents Other Hematologic Yes: Plavix Other Musculoskeletal broken ribs and colar bone Depression Yes Clinic Medical History Intertrochanteric fracture of left hip (Acute Medical) - Social History Smoking status: Never smoker Housing: house Household members: spouse Current occupational status: retired, other (chiropracter) Medications Home Medications Medication Instructions Recorded Confirmed Type Aspirin Chewable [ASA] 81 mg PO QDRHS 01/12/17 01/12/17 History Clopidogrel Bisulfate [Clopidogrel] 75 mg PO QDRHS 01/12/17 01/12/17 History Furosemide [Lasix] 40 mg PO QDRHS 01/12/17 01/12/17 History Magnesium Hydroxide [Milk of 400 mg PO PRN PRN 01/12/17 01/12/17 History Magnesia] Potassium Chloride [Klor-Con 10] 10 meq PO QDRHS 01/12/17 01/12/17 History Sertraline [Zoloft] 25 mg PO QDRHS 01/12/17 01/12/17 History Swizzle Solution 5Ml 30 ml PO Q6H 01/12/17 01/12/17 History [Lidocaine/Maalox/Benadryl Soln] Vit A/Vit C/Vit E/Zinc/Copper 1 each PO QDRHS 01/12/17 01/12/17 History [I-Cassandra Protect Tablet] Allergies Allergy/AdvReac Type Severity Reaction Status Date / Time No Known Allergies Allergy Verified 01/12/17 01:20 Exam Vital Signs: Temperature 97.7 F 01/12/17 03:33 Pulse Rate 76 01/12/17 03:33 Respiratory Rate 16 01/12/17 03:33 Blood Pressure 159/78 H 01/12/17 03:33 Pulse Oximetry 99 01/12/17 03:33 - Constitutional Present: no acute distress - Routine Respiratory Exam Present: CTA bilaterally - Routine Cardiovascular Exam Present: RRR, no murmur - Routine Abdominal Exam Present: soft, normoactive bowel sounds, non tender - Routine Extremities Exam Present: no edema - Routine Skin Exam Present: intact, erythema (bilat legs with swelling, left mildly erythematous, pale) Results - Labs CBC & Chem 7: 01/12/17 01:32 01/12/17 01:32 Assessment and Plan (1) ARF (acute renal failure) Current visit: Yes Status: Acute (2) CAD (coronary artery disease) Current visit: Yes Status: Acute (3) Intertrochanteric fracture of left hip Current visit: Yes Status: Acute Assessment and Plan: will consult ortho possible surgery today, NPO for now, Dilaudid prn for pain , holding the plavix which he takes at home, on telemetry due to cardiac history, recheck Cr/GFR later today, IVF< - Physician Narriative Physician: Kenneth Ceja MD Narriative: 01/12/17 09:52 Brenna I have independently interviewed and examined patient. Chart reviewed. Case discussed with nursing, ortho, and pt's . Reviewed above not and concur. CC: Left hip pain following fall. HPI: 86 y/o male presents to [facility] ED for evaluation of Left hip pain following fall injury. Got up this morning at about 12:30am to go to bathroom. On way out of bathroom, went to sit in a chair. Unfortunately, missed the chair and feel on the hardwood floor. Not too much pain with landing, but had significant pain with any movements. Did not lose consciousness. Not felt dizzy to cause fall. Transported to [facility] for evaluation - found to have left intertrochanteric femur fracture. Admitted for definitive surgical care. Anticipated length of stay is thought to be greater than 2 midnights. PHMx: CAD with Hx NC/Stent, Biventricular heart failure, CVD with Hx stoke, Orthostatic hypotension, Vertigo, Chronic venous insufficiency, OA, MD, B12 deficiency, Vascular dementia, MDD, Pressure ulcer to left buttocks. 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 Breathing stable-not having increase cough, congestion, or SOA. No chest pressure, pain, discomfort. Denies nausea or ab pain. No urinary symptoms. Remainder of 10 point ROS discussed with patient and negative. Exam Gen: WDWNWM Awake and alert, converses well. Not in pain or distress HEENT: NC/AT PERRLA EOMI MMM Neck: Supple, midline, no tracheal deviation Lungs: clear bilaterally. No crackles of wheezes. Breaths comfortably without distress AB: soft nt/nd +BS EXT: No clubbing or cyanosis. Radial pulses strong and equal bilaterally SCD in place to LE. Neuro: CN II-XII intact. No focal deficits. Psych: awake alert appropriate Skin: warm and dry MS: normal muscle mass and tone of B upper/lower ext. Assessment Intertrochateric fracture of left femur Fall secondary to loss of footing CAD without anginal symptoms CV disease with Hx CVA Vascular dementia Suspect Stage III CKD Orthostatic hypotension Depression Macular degeneration Chronic venous insufficiency Recent Stage I pressure ulcer of left buttock Plan Inpatient admission to [facility] for definitive surgical correction of femur fracture. Anticipate greater than 2 midnights of care needed. Consult ortho for surgical evaluation and intervention. Control pain. Hold Plavix and ASA preop to decrease risk for bleeding. Tele to monitor HR secondary to CAD. SCD preop, with addition of Lovenox post op to decrease risk for DVT. PT/OT post op to help maximize functional status. IS for pulmonary toilet. Initiate routine Miralax and Senna Plus post op to help decrease risk for constipation. Monitor blood counts. Monitor volume status and urine output. Patient medically stable for surgical intervention. No obvious contraindications at this time. DNR as per his requests Care to return to Dr Johnson at time of discharge from [facility]. Hospital Course Summary Disclaimer: The visit summary below is not to be considered part of the above Progress Note.
[2017-01-12 05:08] VITALS: BMI 28.8
[2017-01-12] MEDS ORDERED: METOCLOPRAMIDE 10mg/2ml INJECTION IVP ONE (06:00)
[2017-01-12] MEDS ORDERED: FAMOTIDINE PB 20 MG/50 ML BAG IV ONE (06:00)
[2017-01-12] MEDS ORDERED: ACETAMINOPHEN 500 MG TABLET PO ONE (06:00)
[2017-01-12] MEDS ORDERED: LIDOCAINE 1% (10mg/ml) 2mL INJ PF SDV ID ONE (06:00)
[2017-01-12] MEDS ORDERED: NOZIN NASAL SWAB NAS ONE (06:00)
--- NOTE | 2017-01-12 07:56 | XRay Report ---
Indication: fall, left femur pain PROCEDURE: AP and Lateral views of the Left Femur Encounter: Initial Comparison: None Findings: Mildly displaced and comminuted intertrochanteric fracture of the left femur. Diffuse bony demineralization. No additional acute fracture or dislocation seen. Impression: Closed posttraumatic intertrochanteric left femoral fracture. .
--- NOTE | 2017-01-12 07:57 | XRay Report ---
Indication: fall, left hip/pelvis pain PROCEDURE: XR pelvis 1-2V: Encounter: Initial Comparison: None Findings: Comminuted displaced intertrochanteric fracture of the left femur. No additional acute fracture or dislocation seen. Diffuse bony demineralization limiting detection of nondisplaced fractures. Impression: Closed posttraumatic intertrochanteric left femoral fracture. .
[2017-01-12] MEDS ORDERED: EPINEPHrine PF 0.25 MG, BUPIVACAINE 0.25% PF 30 ML, MORPHINE SULFATE 15 MG, KETOROLAC I... OPSITE ONE (08:00)
--- NOTE | 2017-01-12 08:02 | CT Scan Report ---
Indication: fall, head/neck pain PROCEDURE: CT head/brain wo con: Encounter: Initial Comparison: Brain MRI dated December 19, 2014 Technique: Axial CT images through the head were performed without contrast. Iterative Reconstruction dose reducing technique was utilized. FINDINGS: Moderate generalized atrophy. Old left cerebellar infarct. Evidence of old right-sided frontal and parietal lobe infarcts with encephalomalacia. The ventricles are dilated. There are very extensive confluent areas of low attenuation in the white matter which most likely represent changes from chronic microvascular ischemia. The brainstem, cerebellum, and cerebral hemispheres otherwise have a normal morphology and CT attenuation. There is no evidence of midline displacement. No hemorrhage, signs of acute territorial stroke, mass effect, mass lesions, or edema is evident. The visualized portions of the skull base, midface, and calvarium demonstrate no abnormality. The paranasal sinuses are well aerated and free of significant disease. The tympanic and mastoid cavities appear normal. IMPRESSION: No acute intracranial abnormality or hemorrhage. Old infarcts and advanced white matter disease. There is a preliminary report by [facility]. .
--- NOTE | 2017-01-12 08:04 | CT Scan Report ---
Indication: fall, head/neck pain PROCEDURE: CT cervical spine wo con: Encounter: Initial Comparison: None Technique: Axial CT images through the cervical spine were performed without contrast. Coronal and sagittal reformatted images were also obtained. Automated Exposure Control and Iterative Reconstruction dose reducing techniques were utilized. FINDINGS: The alignment of the cervical spine is normal. Multilevel degenerative changes are present. There is no evidence of acute fracture or subluxation of the cervical spine. The atlantoaxial articulation, dens, and upper cervical spine demonstrate no subluxation. The paraspinal soft tissues and spinal canal appear unremarkable. IMPRESSION: No acute traumatic abnormality of the cervical spine. There is a preliminary report by [facility]. .
--- NOTE | 2017-01-12 08:07 | Orthopedic Consult Note ---
Orthopedic Consultation HPI - Consultation Info Consult Date: 01/12/17 Attending Physician: Kenneth Ceja MD Consult Reason: fracture, neck pain - History of Present Illness 86 yo male who in rehab at [place] following a hospitalization for cellulitis of his lower extremities. He was progressing well, but unfortunately fell while going to the bathroom around 00:30 AM on 01/12/17. He had immediate pain in his left hip and was unable to ambulate. He was taken to [facility] where xrays showed a displaced intertrochanteric fx of his left hip. He was admitted by the hospitalist and ortho was consulted for surgical intervention. Pt also complained of head and neck pain after his fall. CT scan of the head and C-spine were done in ER as well. Review of Systems - Constitutional Constitutional: Present: other (Hard of hearing.) - EENT Ears, nose, mouth, throat: Present: other (Rt sided neck pain without radiculopathy.) - Cardiovascular Cardiovascular: Absent: chest pain - Respiratory Respiratory: Absent: cough, dyspnea - Gastrointestinal Gastrointestinal: Absent: abdominal pain - Musculoskeletal Musculoskeletal: Present: as per HPI, neck pain - Integumentary/Breasts Integumentary: Present: swelling (LE. Cellulitis resolved.) - Neurological Neurological: Absent: numbness, sensory deficit, weakness, tingling PFSH Patient Stated Medical History Cerebrovascular Accident Yes Dementia Yes Hearing Loss Yes: bilateral hearing aids Macular Degeneration Yes Coronary Artery Disease Yes Myocardial Infarction Yes: stents Other Hematologic Yes: Plavix Other Musculoskeletal broken ribs and colar bone Depression Yes Clinic Medical History Intertrochanteric fracture of left hip (Acute Medical) ARF (acute renal failure) (Acute Medical) CAD (coronary artery disease) (Acute Medical) - Social History Smoking status: Never smoker Medications Home Medications Medication Instructions Recorded Confirmed Type Aspirin Chewable [ASA] 81 mg PO QDRHS 01/12/17 01/12/17 History Clopidogrel Bisulfate [Clopidogrel] 75 mg PO QDRHS 01/12/17 01/12/17 History Furosemide [Lasix] 40 mg PO QDRHS 01/12/17 01/12/17 History Magnesium Hydroxide [Milk of 400 mg PO PRN PRN 01/12/17 01/12/17 History Magnesia] Potassium Chloride [Klor-Con 10] 10 meq PO QDRHS 01/12/17 01/12/17 History Sertraline [Zoloft] 25 mg PO QDRHS 01/12/17 01/12/17 History Swizzle Solution 5Ml 30 ml PO Q6H 01/12/17 01/12/17 History [Lidocaine/Maalox/Benadryl Soln] Vit A/Vit C/Vit E/Zinc/Copper 1 each PO QDRHS 01/12/17 01/12/17 History [I-Cassandra Protect Tablet] Allergies Allergy/AdvReac Type Severity Reaction Status Date / Time No Known Allergies Allergy Verified 01/12/17 01:20 Orthopedic Exam Vital signs: Temperature 97.8 F 01/12/17 08:01 Pulse Rate 79 01/12/17 08:01 Respiratory Rate 16 01/12/17 08:01 Blood Pressure 152/62 H 01/12/17 08:01 Pulse Oximetry 94 01/12/17 08:01 - Constitutional General Appearance: Present: alert, cooperative, no acute distress, other (Hard of hearing.) - Respiratory Exam Present: non-labored - Cardiovascular Exam Present: peripheral edema (Cellulitis resolved.) - Abdominal Exam Present: soft. Absent: tenderness, distended - Extremities Exam Present: pulses intact Comments: C/O right sided neck pain. No radiculopathy. Moves the arm, has good retention manager strength and normal sensation to UE. - Hip Exam left Hip Exam: Present: unequal leg length, tender over trochanter, abnormal rotation , painful PROM - Neurological Exam Present: no deficits - Psychiatric Exam Present: alert, other (Hard of hearing but otherwise appropriate.) - Labs Result Diagrams: 01/12/17 01:32 01/12/17 01:32 Impression and Recommendation (1) Intertrochanteric fracture of left hip Current visit: Yes Qualifiers: Encounter type: initial encounter Fracture type: closed Fracture alignment: nondisplaced Qualified Code(s): S72.145A - Nondisplaced intertrochanteric fracture of left femur, initial encounter for closed fracture Status: Acute Dr Dwyer met with the pt/family this AM. The plan is for IM fixation of the left hip when pt is medically stable. Platelet inhibition studies show effects of Plavix, but this should not interfere with this type of surgical fixation. Dr Dwyer has reviewed risk vs benefits and possible complications of surgery. Questions were answered to the pt/families satisfaction. CT scan report of the neck is still pending. Hospital Course Summary Disclaimer: The visit summary below is not to be considered part of the above Progress Note.
[2017-01-12] MEDS ORDERED: BISACODYL 10 MG SUPPOSITORY RECTALLY PRN (10:15)
[2017-01-12] MEDS ORDERED: ONDANSETRON 4 MG/2 ML INJECTION IVP PRN ×2 (10:16→15:00)
[2017-01-12] MEDS ORDERED: BUPIVACAINE 0.25% (2.5mg/ml) PF 30ml INJECTION ONE (10:55)
[2017-01-12] MEDS: NS 1,000 ML IV SCH (11:00)
[2017-01-12] MEDS ORDERED: CEFAZOLIN 2 G in NS 100 ML IV ONE (11:03)
--- NOTE | 2017-01-12 11:24 | Anesthesia Preoperative Report ---
Anesthesia Preoperative Record - Date and Time Date: 01/12/17 Preoperative Diagnosis: Left hip fracture Proposed Procedure: Left hip Gamma nail NPO Since Date: 01/11/17 NPO Since Time: 23:55 Allergies/Adverse Reactions: Allergies Allergy/AdvReac Type Severity Reaction Status Date / Time No Known Allergies Allergy Verified 01/12/17 01:20 - Vital Signs Vital Signs: Temperature 98.0 F 01/12/17 10:09 Pulse Rate 77 01/12/17 10:18 Respiratory Rate 18 01/12/17 10:09 Blood Pressure 140/62 H 01/12/17 10:09 Pulse Oximetry 95 01/12/17 10:09 Height and Weight: Height 5 ft 11 in Weight 94.6 kg Body Mass Index 28.8 - Medications Inpatient Medications: Current Medications Bisacodyl (Dulcolax) 10 mg RECTALLY DAILY PRN PRN Reason: Constipation Hydromorphone HCl (Dilaudid) 0.5 mg IVP Q3H PRN Lactated Ringer's (Lactated Ringers) 1,000 mls @ 125 mls/hr IV .Q8H ANH Last Admin: 01/12/17 03:48 Dose: 125 mls/hr Epinephrine HCl 0.25 mg/Bupivacaine HCl 30 ml/Morphine Sulfate 15 mg/Ketorolac Tromethamine 60 mg/Sodium Chloride 65.25 mls @ 1 mls/hr OPSITE INTRAOP ONE PRN Reason: Protocol Stop: 01/15/17 01:14 Sodium Chloride (Normal Saline) 1,000 mls @ 50 mls/hr IV .Q20H [facility] Cefazolin Sodium 2 g/ Sodium (Chloride) 100 mls @ 200 mls/hr IV PREOP ONE Stop: 01/12/17 11:32 Magnesium Hydroxide (Mom) 30 ml PO DAILY PRN PRN Reason: Constipation Ondansetron HCl (Zofran) 4 mg IVP Q6H PRN PRN Reason: Nausea Polyethylene Glycol (Miralax) 17 gm PO DAILY [facility] Senna/Docusate Sodium (Senna Plus Tablet) 1 tab PO BID ANH Sodium Chloride (Iv Flush) 10 - 80 ml IVF PRN PRN PRN Reason: Flushing Last Admin: 01/12/17 03:51 Dose: 10 ml Sodium Chloride (Iv Flush) 10 - 80 ml IV PRN PRN PRN Reason: Flushing Home Medications: Home Medications Medication Instructions Recorded Confirmed Type Aspirin Chewable [ASA] 81 mg PO QDRHS 01/12/17 01/12/17 History Clopidogrel Bisulfate [Clopidogrel] 75 mg PO QDRHS 01/12/17 01/12/17 History Furosemide [Lasix] 40 mg PO QDRHS 01/12/17 01/12/17 History Magnesium Hydroxide [Milk of 400 mg PO PRN PRN 01/12/17 01/12/17 History Magnesia] Potassium Chloride [Klor-Con 10] 10 meq PO QDRHS 01/12/17 01/12/17 History Sertraline [Zoloft] 25 mg PO QDRHS 01/12/17 01/12/17 History Swizzle Solution 5Ml 30 ml PO Q6H 01/12/17 01/12/17 History [Lidocaine/Maalox/Benadryl Soln] Vit A/Vit C/Vit E/Zinc/Copper 1 each PO QDRHS 01/12/17 01/12/17 History [I-Cassandra Protect Tablet] Is Patient on Beta Abhishek?: No - Medical History Respiratory: DENIES: Asthma, Bronchitis, Chronic Obstructive Pulmonary Disease (COPD), Dyspnea, Orthopnea, Pulmonary Embolism, Pneumonia, Upper Respiratory Infection, Pulmonary Edema, Sleep Apnea, Tuberculosis, Other Cardiovascular: Reports: Coronary Artery Disease, Myocardial Infarction (stents , 2008) DENIES: Abnormal EKG, Angina, Arrhythmia, Congestive Heart Failure, Heart Murmur, Hypertension, Hypotension, High Cholesterol, Rheumatic Fever, Valvular Heart Disease, Other Gastrointestional: DENIES: Obstructive Bowel, Hepatitis, Cirrhosis, Nausea or Vomiting Present, Gastroesophageal Reflux Disease, Gastrointestinal Bleeding, Hiatal Hernia, Ulcer , Morbid Obesity, Other Neuro/Musculoskeletal: Reports: Back Problems (neck injury), Cerebrovascular Accident, Depression Denies: HX.MS.OSAR, Headaches, Loss of Consciousness, Muscle Weakness, Neuromuscular Disorder, Paralysis, Paresthesia, Syncope, Seizures, Other ( broken ribs and colar bone) Renal/Endocrine: DENIES: Diabetes Mellitus Type 1, Diabetes Mellitus Type 2, Renal Failure, Dialysis, Thyroid Disease, Weight Loss, Weight Gain, Other Other History: DENIES: Anesthesia Reactions, Now, Blood Transfusions, Chemotherapy , Cancer, Hemophilia, Malignant Hyperthermia, Sickle Cell Disease, Other - Surgical History Cardiac Surgeries/Treatments: Reports: Cardiac Catheterization Anesthesia Reactions: None Hx Family Anesthesia Reaction: No History of Motion Sickness: No - Social History Smoking Status: Never smoker Hx Chewing Tobacco Use: No Second Hand Exposure: No Substance Use Type: does not use Alcohol Intake Frequency: does not drink - Pertinent Findings EKG: Sinus Rhythm - Airway Assessment Mallampati Score: III TMD: 3 Fingerbreadths Neck Extension: fair Overall Assessment: may be difficult mask vent, may be difficult intubation - ASA ASA Score: 3 - Plan Anesthesia: General TIVA (LMA) - Discussion Discussion: Discussed risks/options/alternatives of anesthesia and questions answered. Patient consents. Nursing pain assessment noted. Present for Discussion: spouse Attestation Statement: Prior to the delivery of any anesthetic medication, I examined the patient, developed the plan, obtained the patient's consent and discussed the risk and benefits of the procedure with the patient/guardian. - Additional Information Comments: Pt on Plavix. PLT FX test 139. Dr croft aware and wishes to proceed with surgery. Talked with family regarding risk of increased bleeding. Seen by Anesthesia: Yes
[2017-01-12] MEDS ORDERED: PROPOFOL 500 MG/50 ML VIAL IV ONE ×2 (11:46→12:53)
[2017-01-12] MEDS ORDERED: KETAMINE 500 MG/10 ML INJECTION ONE (11:46)
[2017-01-12] MEDS ORDERED: FentaNYL 100 MCG/2 ML INJECTION ONE (11:46)
[2017-01-12] MEDS ORDERED: GLYCOPYRROLATE 0.4 MG/2 ML INJECTION ONE (12:26)
[2017-01-12] MEDS ORDERED: HYDROMORPHONE 2 MG/ML INJECTION ONE (12:28)
[2017-01-12] MEDS ORDERED: SALINE FLUSH 10ml SYRINGE ONE (12:50)
[2017-01-12] MEDS ORDERED: PHENYLEPHRINE INJ 10 MG/ML VIAL IV ONE (12:50)
--- NOTE | 2017-01-12 13:49 | Post Procedure Note ---
Date of Procedure: 01/12/17 Orthopedic Surgeon: Yuliya Orthopedic Assisting Surgeon: Jenaro Valencia Anesthesia: General TIVA (LMA) Procedure: Procedures Operation Date: 01/12/17 13:00 Actual Procedures Left hip Intramedullary nail p(Left) - Frank Dwyer MD Condition: Stable Disposition: PACU
--- NOTE | 2017-01-12 14:28 | Remote Fluorsocopy Report ---
Indication: LT HIP FX PROCEDURE: RF hip LT 2 view: Encounter: Initial Comparison: Pelvis radiographs from today Findings: Four fluoroscopic spot images are submitted for interpretation. Images show open reduction and internal fixation of the intertrochanteric left femoral fracture with placement of an intramedullary nail, compression screw and distal interlocking screws. Improved alignment of the fracture fragments. Impression: Intraoperative fluoroscopy as above. Fluoroscopy time is 242.2 seconds. Fluoroscopy dose is 5780 mRad. .
--- NOTE | 2017-01-12 14:38 | Anesthesia Postoperative Note ---
- Date and Time Date: 01/12/17 Time: 14:37 - Status Patient Participated in Evaluation: Patient Participated in Person Vital Signs: Temperature 99.2 F 01/12/17 13:41 Pulse Rate 87 01/12/17 14:35 Respiratory Rate 12 01/12/17 14:35 Blood Pressure 119/60 01/12/17 14:35 Pulse Oximetry 100 01/12/17 14:35 Respiratory Function: Airway Patent, Regular Respirations Cardiovascular Function: Regular Pulse EKG: Sinus Rhythm Mental Status: Lethargic (responds to voice) Pain Intensity: 0 Hydration: IV Infusing Complications During Recover: None Apparent - Follow-Up Instructions Instructions: Per Surgeon
[2017-01-12] MEDS ORDERED: CEFAZOLIN 1 G in NS 100 ML IV SCH (15:00)
[2017-01-12] MEDS: NOZIN NASAL SWAB NAS SCH ×2 (15:04→22:35)
[2017-01-12] MEDS: HYDROCODONE/APAP 5mg/325mg TABLET PO PRN (19:37)
[2017-01-12] MEDS ORDERED: NS FLUSH BAG 500ml IV PRN (19:47)
[2017-01-12] MEDS: SENNA + DOCUSATE TABLET PO SCH (20:00)
--- NOTE | 2017-01-12 20:36 | Operative Note ---
DATE OF SURGERY 01/12/2017 PREOPERATIVE DIAGNOSIS Left comminuted four-part intertrochanteric hip fracture. POSTOPERATIVE DIAGNOSIS Left comminuted four-part intertrochanteric hip fracture. PROCEDURE Intramedullary fixation left intertrochanteric hip fracture. SURGEON Frank Dwyer MD VETERINARIAN SMALL ANIMAL Jenaro Valencia PA-C ANESTHESIA TIVA with local. FLUIDS Please refer to Anesthesia chart. ESTIMATED BLOOD LOSS Less than 100 mL. COMPLICATIONS None. CONDITION Stable in recovery room. IMPLANTS [place] 13 mm x 380 125-degree gamma III nail with 100-mm cephalomedullary lag screw and two distal 5.5-mm locking screws. DESCRIPTION Procedure was identified in the preoperative holding area. The operative extremity was identified and appropriately marked. Risks, benefits, alternatives and potential complications were discussed with the patient and his and informed consent was obtained. The patient was taken to the operating theatre. Appropriate cardiorespiratory monitors were applied. Sedation was administered. The patient was then transferred to the fracture table. Peroneal post was placed and all bony prominences were well padded. Bilateral lower extremities were placed in well-padded traction boots and applied to the traction table. The distal portion of the table was then removed. Reduction maneuvers were performed as well as adducting the hip with longitudinal traction and rotation to obtain the best possible reduction. We found the collar remained slightly medialized despite adduction. We felt we could correct this intraoperatively and accepted the position. There was noted to be a lesser trochanter fracture and a greater trochanter fracture as well. The left lower extremity was then sterilely prepped and draped in the usual fashion. Surgical time-out was performed, confirmed with myself, the shop estimator and circulating nurse. Preoperative antibiotics were given. Fluoroscopy was brought in and surgical landmarks were delineated on the skin. A 4-cm incision was created proximal to the greater trochanter. Blunt dissection was carried through the subcutaneous fat. The gluteal fascia was sharply incised and then blunt dissection carried down to the tip of the trochanter. Under fluoroscopic guidance the starting guide pin was inserted. Position was confirmed in the AP and lateral planes. Soft tissue guide was then inserted and opening reamer was inserted and used to open the proximal canal. The short brissa was then exchanged for a long guide brissa. We measured the guide brissa and opted for a 380-mm nail. We then sequentially reamed over the guide brissa to 14.5 and opted for a 13-mm brissa. The brissa was then opened at the back table and attached to the insertion handle. It was then deployed and inserted. Level of depth of insertion was confirmed utilizing the radiopaque marker on the lateral guide. A 4-cm incision was then created for insertion of the guide pin. The guide sleeve was placed down to bone after incising the IT band and blunt dissection of the vastus lateralis with a Rubio elevator. The pin was then positioned and started into the lateral cortex of the femur. It was not taken across the fracture site. At this time careful placement of a bone hook over the anterior aspect of the femur making sure to maintain contact with the bony surface until we could grasp the calcar of the neck. The neck was then pulled laterally into better position with cortical opposition on the proximal medial shaft. The guidewire was then advanced. Position was confirmed in the AP and lateral planes. The wire was measured and we opted for a 100-mm cephalomedullary screw. While maintaining reduction with the bone hook , this was reamed. The cephalomedullary screw was then opened and subsequently inserted. We then removed the bone hook and released traction from the leg while compression was applied utilizing the device which compressed the calcar and fracture line appropriately. The locking screw was then inserted into the proximal aspect of the nail and the cephalomedullary targeting guide was removed. The distal alignment targeting guide was then applied. Appropriate x- ray planes were obtained. We then created two small stab incisions distally after marking the skin with the drill sleeves. Blunt dissection was carried to the lateral femur. We then drilled both holes to include the dynamic and static hole. A 42.5 mm screw was placed proximally and a 45-mm screw placed distally. The aiming arm was then removed followed by the insertion handle. Final x-rays were obtained showing a well-fixed comminuted left intertrochanteric hip fracture. Wounds were then copiously irrigated and closed in standard layered fashion. Sterile dressings were applied. The end of the table was then replaced. Both lower extremities were placed taken out of traction boots. The patient was then transferred back over to his hospital bed. He was awakened from anesthesia and taken to the recovery room in stable and satisfactory condition. KUSUM
[2017-01-13] MEDS: HYDROCODONE/APAP 5mg/325mg TABLET PO PRN ×3 (02:42→23:46)
[2017-01-13] MEDS: NS 1,000 ML IV SCH (06:02)
[2017-01-13] MEDS: ASPIRIN 81 MG CHEWABLE TABLET PO SCH (08:51)
[2017-01-13] MEDS: NOZIN NASAL SWAB NAS SCH ×3 (08:51→22:18)
[2017-01-13] MEDS: CLOPIDOGREL 75 MG TABLET PO SCH (08:51)
[2017-01-13] MEDS: SENNA + DOCUSATE TABLET PO SCH ×2 (08:51→22:18)
[2017-01-13] MEDS: POLYETHYL GLYCOL 3350 17gm PACKET PO SCH (08:52)
--- NOTE | 2017-01-13 09:16 | Orthopedic Progress Note ---
Date: Subjective/Severity of Illness: Mr. Zabala states his pain is improving. He denies CP or shortness of breath. . Orthopedic Objective PO Vital signs: Temperature 96.1 F L 01/13/17 07:51 Pulse Rate 87 01/13/17 07:51 Respiratory Rate 20 01/13/17 07:51 Blood Pressure 122/69 01/13/17 07:51 Pulse Oximetry 94 01/13/17 07:51 Height and Weight: Height 5 ft 11 in Weight 208 lb 8.917 oz Body Mass Index 28.8 - Constitutional General Appearance: Present: alert, cooperative, no acute distress, other (Hard of hearing.) - Respiratory Exam Present: non-labored - Cardiovascular Exam Present: peripheral edema (Cellulitis resolved.) - Abdominal Exam Present: soft. Absent: tenderness, distended - Extremities Exam Extremities: Present: pulses intact. Absent: calf tenderness - Hip Exam Hip Exam: Present: IR-limited, ER- limited. Absent: abnormal rotation - Surgical Site Incision: clean, intact Wound Drainage: serosanguinous, minimal amount - Integumentary Exam Present: pink, warm, dry, intact - Neurological Exam Present: no deficits - Psychiatric Exam Present: alert, other (Hard of hearing but otherwise appropriate.) - Labs Result Diagrams: 01/13/17 07:27 01/13/17 04:53 Abnormal lab results 01/12/17 01/13/17 01/13/17 Range/Units 16:21 04:53 07:27 RBC 3.24 L (4.50-5.90) M/MM3 Hgb 10.2 L (13.5-17.5) GM/DL Hct 31.7 L (41-53) % MPV 8.6 L (9.4-12.4) UM3 Holmes % (Auto) 15.9 H (0-9.0) % Holmes # (Auto) 1.7 H (0-0.8) T/MM3 Abs Immat Gran (auto) 0.05 H (0.00-0.03) T/MM3 Sodium 145 H (134-144) MEQ/L Chloride 110 H 111 H (98-107) MEQ/L BUN 28.0 H 33.0 H (9-20) MG/DL Creatinine 1.8 H 1.9 H (0.8-1.5) MG/DL Glucose 123 H 124 H (75-110) MG/DL Calculated Osmolality 286 H (261-280) MOSM/KG Calcium 8.3 L 7.7 L (8.4-10.2) MG/DL Phosphorus 4.6 H (2.5-4.5) MG/DL Albumin 3.4 L (3.5-5.0) G/DL H & H 01/13/17 01/13/17 Range/Units 04:53 07:27 Hgb Cancelled 10.2 L Hct Cancelled 31.7 L Orthopedic Assessment and Plan (1) Intertrochanteric fracture of left hip Status: Acute Qualifiers: Encounter type: initial encounter Fracture type: closed Fracture alignment: nondisplaced Qualified Code(s): S72.145A - Nondisplaced intertrochanteric fracture of left femur, initial encounter for closed fracture Assessment and Plan: Mobilize as able with PT/OT. WBAT. Plavix with 81mg ASA for DVT prevention. If hospitalist feels he would be better suited for a different anticoagulant plan, ortho would defer to them. chronic care nurse for discharge planning medical management per hospitalist team - Anticoagulation Therapy Anticoagulation: other (Plavix plus ASA) Hospital Course Summary Disclaimer: The visit summary below is not to be considered part of the above Progress Note.
[2017-01-13] MEDS: SALINE FLUSH 10ml SYRINGE IV PRN ×2 (11:08→18:44)
[2017-01-13] MEDS: FUROSEMIDE 40 MG TABLET PO SCH (15:11)
--- NOTE | 2017-01-13 16:47 | Echocardiogram ---
DATE OF PROCEDURE January 13, 2017 This is a two-dimensional echo with spectral Doppler, color-flow and M-mode. It was obtained in a patient with congestive heart failure. This was technically a very difficult study. Left atrial dimension appears to be normal. Left ventricular wall thickness is normal. LV systolic function appears to be normal. However, all shen were not visualized. Ejection fraction is estimated about 55%. Right atrium is normal. Right ventricle is normal. Aortic root dimension is normal. Mitral valve appears to be normal. Aortic valve shows fibrocalcific changes with no stenosis or insufficiency. Tricuspid valve shows mild tricuspid regurgitation with mild pulmonary hypertension with estimated pulmonary artery systolic pressure of 37. Pulmonary valve shows mild pulmonary insufficiency. There is no pericardial effusion. IMPRESSION 1. Technically difficult study. 2. Grossly normal LV systolic function with ejection fraction of about 55%. 3. Aortic sclerosis. 4. Mild tricuspid regurgitation with mild pulmonary hypertension with estimated pulmonary artery systolic pressure of 37. 5. Mild pulmonary insufficiency. MTDD
[2017-01-13] MEDS ORDERED: FUROSEMIDE 20 MG/2 ML INJECTION IVP ONE (18:05)
--- NOTE | 2017-01-13 18:12 | Progress Note ---
- Date 01/13/17 Subjective: The patient was seen this evening in his room. His nurse states that he was on room air all day but then received pain medication and took a nap and oxygen saturations fell into the high 80s. He was placed on 2 L of oxygen. He has had poor urine output since admission. He has dementia. He denies any shortness of breath. He denies any pain. Objective Vital signs: Temperature 97.0 F 01/13/17 16:24 Pulse Rate 100 01/13/17 16:24 Respiratory Rate 18 01/13/17 16:24 Blood Pressure 124/53 01/13/17 16:24 Pulse Oximetry 91 01/13/17 16:24 Height/Weight/BMI: Height 1.8 m Weight 95.5 kg Body Mass Index 28.8 Comments: I&O is 4525/550 GEN-alert, pleasant, no acute distress HEENT-sclera anicteric, oropharynx is moist NECK-supple CV-regular rate and rhythm CHEST-clear to auscultation anteriorly ABD-soft, nontender with positive bowel sounds -no Carvajal EXT-+1 edema, SCDs are on NEURO-no focal deficits SKIN-warm and dry and without rashes Results - Labs CBC & Chem 7: 01/13/17 07:27 01/13/17 04:53 Assessment and Plan (1) Intertrochanteric fracture of left hip Current visit: Yes Status: Acute (2) ARF (acute renal failure) Current visit: Yes Status: Acute (3) CAD (coronary artery disease) Current visit: Yes Status: Acute Assessment and Plan: Assessment Intertrochateric fracture of left femur-surgically repaired 01/12/2017 Anemia Creatinine 1.9, uncertain if acute versus chronic (Suspect Stage III CKD and ( Poor urine output since admission Fall secondary to loss of footing CAD without anginal symptoms CV disease with Hx CVA Vascular dementia Orthostatic hypotension Depression Macular degeneration Chronic venous insufficiency Recent Stage I pressure ulcer of left buttock Plan We'll give a 250 cc normal saline bolus followed by Lasix 20 mg IV. If the patient is not able to void, Will need to place Carvajal. Check CBC and basic metabolic profile tomorrow Try to obtain baseline creatinine from primary care office Hospital Course Summary Disclaimer: The visit summary below is not to be considered part of the above Progress Note.
[2017-01-14] MEDS: SALINE FLUSH 10ml SYRINGE IV PRN (02:33)
[2017-01-14] MEDS: NS 1,000 ML IV SCH (02:47)
[2017-01-14] MEDS: HYDROCODONE/APAP 5mg/325mg TABLET PO PRN ×2 (03:19→09:46)
[2017-01-14] MEDS: NOZIN NASAL SWAB NAS SCH ×4 (06:24→23:41)
[2017-01-14] MEDS: ASPIRIN 81 MG CHEWABLE TABLET PO SCH (09:03)
[2017-01-14] MEDS: CLOPIDOGREL 75 MG TABLET PO SCH (09:03)
[2017-01-14] MEDS: FUROSEMIDE 40 MG TABLET PO SCH (09:03)
[2017-01-14] MEDS: SENNA + DOCUSATE TABLET PO SCH ×2 (09:03→21:38)
[2017-01-14] MEDS: POLYETHYL GLYCOL 3350 17gm PACKET PO SCH (09:04)
--- NOTE | 2017-01-14 14:19 | Progress Note ---
- Date 01/14/17 Subjective: The patient was seen this afternoon in his room. His nurse stated that this morning when he was getting up with assist of a left from the bed to the chair he complained of feeling weak and for a short time appeared to be staring off and minimally responsive. Vital signs were obtained and were essentially normal with systolic blood pressure of 136 and heart rate in the 90s. He was on 2 L of oxygen with saturations in the 90s. He came around fairly quickly and denied any complaints. Currently he is lying in bed. He denies any shortness of breath or chest pain. He denies any abdominal pain or nausea. He states he is not hungry for lunch. Objective Vital signs: Temperature 96.6 F L 01/14/17 11:28 Pulse Rate 97 01/14/17 11:28 Respiratory Rate 18 01/14/17 11:28 Blood Pressure 117/63 01/14/17 11:28 Pulse Oximetry 94 01/14/17 11:28 Height/Weight/BMI: Height 1.8 m Weight 99.3 kg Body Mass Index 28.8 Comments: GEN-alert, mildly confused, no acute distress CV-regular rate and rhythm CHEST-clear to auscultation bilaterally ABD-soft, nontender with positive bowel sounds -no Carvajal EXT-edema NEURO-chronic dementia, no focal deficits SKIN-warm and dry and without rashes Results - Labs CBC & Chem 7: 01/14/17 04:45 01/14/17 04:45 Assessment and Plan (1) Intertrochanteric fracture of left hip Current visit: Yes Status: Acute (2) ARF (acute renal failure) Current visit: Yes Status: Acute (3) CAD (coronary artery disease) Current visit: Yes Status: Acute Assessment and Plan: 01/14/2017 Assessment Intertrochateric fracture of left femur-surgically repaired 01/12/2017 Anemia -hemoglobin dropped from 10.2 yesterday to 8.2 today. Blood pressure and pulse are normal Creatinine 2.2 today-baseline is 1.9 since August 2016 Poor urine output since admission-improved with fluid bolus and Lasix yesterday Fall secondary to loss of footing CAD without anginal symptoms -on Plavix and aspirin with history of stent CV disease with Hx CVA Vascular dementia Orthostatic hypotension Depression Macular degeneration Chronic venous insufficiency Recent Stage I pressure ulcer of left buttock Plan Given a 500 cc fluid bolus 1 today for increasing creatinine. Check bladder scan for urinary retention. Recheck CBC and basic metabolic profile tomorrow Possible transfer to [facility] tomorrow if hemoglobin and creatinine are stable Hospital Course Summary Disclaimer: The visit summary below is not to be considered part of the above Progress Note. Hospital Course: Assessment Intertrochateric fracture of left femur-surgically repaired 01/12/2017 Anemia Creatinine 1.9, uncertain if acute versus chronic (Suspect Stage III CKD and ( Poor urine output since admission Fall secondary to loss of footing CAD without anginal symptoms CV disease with Hx CVA Vascular dementia Orthostatic hypotension Depression Macular degeneration Chronic venous insufficiency Recent Stage I pressure ulcer of left buttock Plan We'll give a 250 cc normal saline bolus followed by Lasix 20 mg IV. If the patient is not able to void, Will need to place Carvajal. Check CBC and basic metabolic profile tomorrow Try to obtain baseline creatinine from primary care office
[2017-01-14] MEDS: SERTRALINE 25 MG TABLET PO SCH (14:34)
[2017-01-14] MEDS: TAMSULOSIN 0.4 MG CAPSULE PO SCH (21:39)
[2017-01-15] MEDS: HYDROCODONE/APAP 5mg/325mg TABLET PO PRN ×2 (01:00→12:13)
[2017-01-15] MEDS ORDERED: FALL RISK - PHARMACY CONSULT XX ONE (02:02)
[2017-01-15] MEDS: NOZIN NASAL SWAB NAS SCH ×2 (06:20→15:24)
[2017-01-15] MEDS: ASPIRIN 81 MG CHEWABLE TABLET PO SCH (09:23)
[2017-01-15] MEDS: CLOPIDOGREL 75 MG TABLET PO SCH (09:23)
[2017-01-15] MEDS: SERTRALINE 25 MG TABLET PO SCH (09:23)
[2017-01-15] MEDS: SENNA + DOCUSATE TABLET PO SCH ×2 (09:23→20:22)
[2017-01-15] MEDS: POLYETHYL GLYCOL 3350 17gm PACKET PO SCH (09:23)
[2017-01-15] MEDS: FUROSEMIDE 40 MG TABLET PO SCH (09:23)
--- NOTE | 2017-01-15 10:33 | Orthopedic Progress Note ---
Date: Subjective/Severity of Illness: Mr. Zabala is currently getting up with nursing. No concerns reported at this time. Orthopedic Objective PO Vital signs: Temperature 97.4 F 01/15/17 07:58 Pulse Rate 97 01/15/17 07:58 Respiratory Rate 16 01/15/17 07:58 Blood Pressure 122/65 01/15/17 07:58 Pulse Oximetry 90 01/15/17 07:58 Height and Weight: Height 5 ft 11 in Weight 215 lb 9.793 oz Body Mass Index 28.8 - Constitutional General Appearance: Present: alert, cooperative, no acute distress, other (Hard of hearing.) - Respiratory Exam Present: non-labored - Surgical Site Incision: dressing intact, no drainage - Neurological Exam Present: no deficits - Psychiatric Exam Present: alert - Labs Result Diagrams: 01/15/17 04:10 01/15/17 04:10 Abnormal lab results 01/15/17 01/15/17 Range/Units 04:10 04:10 RBC 2.45 L (4.50-5.90) M/MM3 Hgb 7.7 L (13.5-17.5) GM/DL Hct 23.9 L (41-53) % MPV 9.2 L (9.4-12.4) UM3 Immature Gran % (Auto) 0.8 H (0.0-0.5) % Lymph % (Auto) 19.7 L (23-45) % [place] % (Auto) 9.9 H (0-9.0) % Abs Immat Gran (auto) 0.06 H (0.00-0.03) T/MM3 BUN 47.0 H (9-20) MG/DL Creatinine 1.9 H D (0.8-1.5) MG/DL Calculated Osmolality 281 H (261-280) MOSM/KG Calcium 8.1 L (8.4-10.2) MG/DL H & H 01/13/17 01/13/17 01/14/17 Range/Units 04:53 07:27 04:45 Hgb Cancelled 10.2 L 8.2 L D Hct Cancelled 31.7 L 25.7 L D 01/15/17 Range/Units 04:10 Hgb 7.7 L Hct 23.9 L Orthopedic Assessment and Plan (1) Intertrochanteric fracture of left hip Status: Acute Qualifiers: Encounter type: initial encounter Fracture type: closed Fracture alignment: nondisplaced Qualified Code(s): S72.145A - Nondisplaced intertrochanteric fracture of left femur, initial encounter for closed fracture Assessment and Plan: Mobilize as able with PT/OT. WBAT. Plavix with 81mg ASA for DVT prevention. housekeeper caregiver for discharge planning medical management per hospitalist team. F/U in ortho clinic in 3 weeks. - Anticoagulation Therapy Anticoagulation: Resume home anticoagulant Hospital Course Summary Disclaimer: The visit summary below is not to be considered part of the above Progress Note. Hospital Course: Assessment Intertrochateric fracture of left femur-surgically repaired 01/12/2017 Anemia Creatinine 1.9, uncertain if acute versus chronic (Suspect Stage III CKD and ( Poor urine output since admission Fall secondary to loss of footing CAD without anginal symptoms CV disease with Hx CVA Vascular dementia Orthostatic hypotension Depression Macular degeneration Chronic venous insufficiency Recent Stage I pressure ulcer of left buttock Plan We'll give a 250 cc normal saline bolus followed by Lasix 20 mg IV. If the patient is not able to void, Will need to place Carvajal. Check CBC and basic metabolic profile tomorrow Try to obtain baseline creatinine from primary care office
--- NOTE | 2017-01-15 13:36 | Internal Med Progress Note ---
Internal Medicine Subjective Patient seen and examined for the hospitalist. Mr. Zabala is up to the recliner. At this time he c/o of pain 08/16. His hgb has dropped to 7.7. Denies CP. Exam Vital Signs: Temperature 96.3 F L 01/15/17 11:14 Pulse Rate 96 01/15/17 11:14 Respiratory Rate 16 01/15/17 11:14 Blood Pressure 132/69 01/15/17 11:14 Pulse Oximetry 93 01/15/17 11:14 Telemetry Rhythm: Sinus Tachycardia Height/Weight/BMI: Height 5 ft 11 in Weight 97.8 kg Body Mass Index 28.8 - Constitutional Present: mild distress - Routine HEENT Exam Head: Present: normocephalic, atraumatic. Absent: scalp tenderness Eye: Present: EOMI, PERRL, conjunctivae pink. Absent: conjunctival icterus, scleral injection ENT: Present: mucous membranes moist, oropharynx clear, nares patent - Routine Neck Exam Present: supple. Absent: JVD, lymphadenopathy, thyromegaly - Routine Respiratory Exam Present: CTA bilaterally. Absent: accessory muscle use, dyspnea - Routine Cardiovascular Exam Present: tachycardia. Absent: S3, S4 Comments: Sinus tach on monitor. Rate = 95-105. Occasional ectopy. - Routine Abdominal Exam Present: soft, non distended, non tender. Absent: rebound, guarding, rigid - Routine Extremities Exam Absent: cyanosis, clubbing, edema Comments: Left hip surgical site looks good. - Routine Skin Exam Present: intact. Absent: erythema, pallor, mottling, petechiae, urticaria, jaundice - Routine Neurological Exam Present: alert. Absent: oriented X3 - Routine Psychiatric Exam Present: normal affect, cooperative. Absent: good insight, good judgment Internal Medicine Results - Labs CBC & Chem 7: 01/15/17 04:10 01/15/17 04:10 Labs: Short CBC 01/15/17 Range/Units 04:10 WBC 7.4 (4.5-11.0) T/MM3 Hgb 7.7 L (13.5-17.5) GM/DL Hct 23.9 L (41-53) % Plt Count 154 (130-400) T/MM3 BMP 01/15/17 04:10 Sodium 140 Potassium 4.6 Chloride 107 Carbon Dioxide 25 BUN 47.0 H Creatinine 1.9 H D Glucose 104 Calcium 8.1 L Progress Note-A&P - Time Spent With Patient Total time spent is greater than 50% in coordination of care (as documented) at patient's floor/unit and/or counseling patient: 25 - 35 minutes (1) Acute blood loss as cause of postoperative anemia Status: Acute Assessment and plan: Transfuse 1 unit PRBC Current Visit: Yes (2) ARF (acute renal failure) Status: Acute Current Visit: Yes (3) CAD (coronary artery disease) Status: Acute Current Visit: Yes (4) Intertrochanteric fracture of left hip Status: Acute Current Visit: Yes - Assessment and Plan Transfuse 1 unit blood today. Recheck cbc in AM. Consider In[facility] Hospital Course Summary Disclaimer: The visit summary below is not to be considered part of the above Progress Note. Hospital Course: Assessment Intertrochateric fracture of left femur-surgically repaired 01/12/2017 Anemia Creatinine 1.9, uncertain if acute versus chronic (Suspect Stage III CKD and ( Poor urine output since admission Fall secondary to loss of footing CAD without anginal symptoms CV disease with Hx CVA Vascular dementia Orthostatic hypotension Depression Macular degeneration Chronic venous insufficiency Recent Stage I pressure ulcer of left buttock Plan We'll give a 250 cc normal saline bolus followed by Lasix 20 mg IV. If the patient is not able to void, Will need to place Carvajal. Check CBC and basic metabolic profile tomorrow Try to obtain baseline creatinine from primary care office
[2017-01-15] MEDS ORDERED: NS FLUSH BAG 500ml IV PRN (13:43)
[2017-01-15] MEDS: TAMSULOSIN 0.4 MG CAPSULE PO SCH (20:22)
[2017-01-16] MEDS: NOZIN NASAL SWAB NAS SCH ×4 (00:18→23:31)
[2017-01-16] MEDS: HYDROCODONE/APAP 5mg/325mg TABLET PO PRN ×4 (04:23→23:44)
[2017-01-16] MEDS: POLYETHYL GLYCOL 3350 17gm PACKET PO SCH (08:47)
[2017-01-16] MEDS: FUROSEMIDE 40 MG TABLET PO SCH (08:47)
[2017-01-16] MEDS: CLOPIDOGREL 75 MG TABLET PO SCH (08:48)
[2017-01-16] MEDS: SERTRALINE 25 MG TABLET PO SCH (08:48)
[2017-01-16] MEDS: ASPIRIN 81 MG CHEWABLE TABLET PO SCH (08:48)
[2017-01-16] MEDS: SENNA + DOCUSATE TABLET PO SCH ×2 (08:48→20:03)
--- NOTE | 2017-01-16 12:37 | Internal Med Progress Note ---
Internal Medicine Subjective Patient seen and examined for the hospitalist. Mr. Zabala is up to the recliner. I discussed this case with his nurse. He denies chest pain, shortness of breath, abdominal pain. He indicates that his postsurgical pain seems to be well enough controlled. In review of his morning lab, I noted that his creatinine has improved while his BU and has increased. Most notable causes would include prerenal or postrenal azotemia or an upper GI hemorrhage. He has a Carvajal catheter so this effectively rules out post renal azotemia. His hemoglobin has been dropping although it did improve with the 1 unit transfused yesterday. This makes me suspicious for a gastric bleed. He has not had a bowel movement yet. I will order a suppository and Hemoccult and start him on Protonix because he is on Plavix and there is no interaction between Protonix and Plavix. Exam Vital Signs: Temperature 96.6 F L 01/16/17 11:27 Pulse Rate 92 01/16/17 11:27 Respiratory Rate 20 01/16/17 11:27 Blood Pressure 122/65 01/16/17 11:27 Pulse Oximetry 96 01/16/17 11:27 Height/Weight/BMI: Height 5 ft 11 in Weight 98 kg Body Mass Index 28.8 - Constitutional Present: no acute distress, obese, cooperative - Routine HEENT Exam Head: Present: normocephalic, atraumatic Eye: Present: EOMI, PERRL. Absent: conjunctival icterus, scleral injection, conjunctivae pink ENT: Present: mucous membranes moist, oropharynx clear, nares patent - Routine Neck Exam Present: supple. Absent: JVD, lymphadenopathy, thyromegaly - Routine Chest/Breast/Axilla Exam Chest wall: Absent: tenderness Axillae: Absent: lymphadenopathy - Routine Respiratory Exam Present: CTA bilaterally. Absent: accessory muscle use, rales, rhonchi, wheezes - Routine Cardiovascular Exam Present: RRR, no murmur. Absent: S3, S4 - Routine Abdominal Exam Present: soft, normoactive bowel sounds, non distended, non tender - Routine Extremities Exam Present: edema. Absent: cyanosis, clubbing Comments: Venous insufficiency - Routine Skin Exam Present: intact. Absent: cyanosis, erythema, pallor, mottling, petechiae, urticaria, jaundice - Routine Neurological Exam Present: alert, CN II-XII intact. Absent: oriented X3 (he is alert and oriented to person, but confused as to location and the events.) - Routine Psychiatric Exam Present: cooperative. Absent: good insight, good judgment, depressed, anxious Internal Medicine Results - Labs CBC & Chem 7: 01/16/17 03:53 01/16/17 03:53 Labs: Short CBC 01/15/17 01/16/17 Range/Units 21:46 03:53 WBC 6.4 (4.5-11.0) T/MM3 Hgb 8.9 L D 8.8 L (13.5-17.5) GM/DL Hct 27.4 L D (41-53) % Plt Count 180 (130-400) T/MM3 BMP 01/16/17 03:53 Sodium 140 Potassium 4.2 Chloride 107 Carbon Dioxide 28 BUN 48.0 H Creatinine 1.7 H D Glucose 107 Calcium 8.2 L Progress Note-A&P - Time Spent With Patient Total time spent is greater than 50% in coordination of care (as documented) at patient's floor/unit and/or counseling patient: 25 - 35 minutes (1) Acute blood loss as cause of postoperative anemia Status: Acute Assessment and plan: Transfuse 1 unit PRBC Current Visit: Yes (2) ARF (acute renal failure) Status: Acute Assessment and plan: His creatinine has improved, however his BUN/creatinine has risen possibly consistent with an upper GI bleed Current Visit: Yes (3) CAD (coronary artery disease) Status: Acute Current Visit: Yes (4) Intertrochanteric fracture of left hip Status: Acute Current Visit: Yes - Assessment and Plan The plan at this point is to Hemoccult of stool, start him on Protonix to protect his stomach and consider holding his Plavix. We will also monitor his hemoglobin. Hospital Course Summary Disclaimer: The visit summary below is not to be considered part of the above Progress Note. Hospital Course: Assessment Intertrochateric fracture of left femur-surgically repaired 01/12/2017 Anemia Creatinine 1.9, uncertain if acute versus chronic (Suspect Stage III CKD and ( Poor urine output since admission Fall secondary to loss of footing CAD without anginal symptoms CV disease with Hx CVA Vascular dementia Orthostatic hypotension Depression Macular degeneration Chronic venous insufficiency Recent Stage I pressure ulcer of left buttock Plan We'll give a 250 cc normal saline bolus followed by Lasix 20 mg IV. If the patient is not able to void, Will need to place Carvajal. Check CBC and basic metabolic profile tomorrow Try to obtain baseline creatinine from primary care office
[2017-01-16] MEDS: PANTOPRAZOLE 40 MG TABLET PO SCH ×2 (13:10→16:15)
[2017-01-16] MEDS: TAMSULOSIN 0.4 MG CAPSULE PO SCH (20:03)
[2017-01-17] MEDS: NOZIN NASAL SWAB NAS SCH ×2 (05:43→06:44)
[2017-01-17] MEDS: PANTOPRAZOLE 40 MG TABLET PO SCH (05:43)
[2017-01-17 08:07] VITALS: TEMP 96
[2017-01-17] MEDS: POLYETHYL GLYCOL 3350 17gm PACKET PO SCH (08:38)
[2017-01-17] MEDS: CLOPIDOGREL 75 MG TABLET PO SCH (08:39)
[2017-01-17] MEDS: SENNA + DOCUSATE TABLET PO SCH (08:39)
[2017-01-17] MEDS: ASPIRIN 81 MG CHEWABLE TABLET PO SCH (08:39)
[2017-01-17] MEDS: FUROSEMIDE 40 MG TABLET PO SCH (08:39)
[2017-01-17] MEDS: SERTRALINE 25 MG TABLET PO SCH (08:39)
--- NOTE | 2017-01-17 10:24 | Discharge Summary ---
Discharge Information Date of admission: 01/12/17 03:20 Anticipated date of discharge: 01/17/17 Attending Physician: Leon Kay MD Primary care physician: Attila Johnson Consults: 01/12/17 10:14 Physician Consult [CONS] Routine Consulting Provider: Leon Daniel Reason For Exam: Metabolic Bone Disease Ordering Provider has Notified Highway Landscape Architect: No - Discharge Diagnosis (1) Intertrochanteric fracture of left hip Status: Acute (2) ARF (acute renal failure) Status: Acute (3) CAD (coronary artery disease) Status: Acute Post op urinary retention, Post op anemia - Procedures Procedures: 01/12/17 Intramedulary fixation of intertroch hip fx left. - Laboratory Labs: 01/17/17 04:10 01/17/17 04:10 - Radiology Radiology: 01/[address] -- neg Head ct -- old infarct, no acute trauma Left Femur -- L intertrochanteric fx Pelvis -- neg 01/13 Echo-- EF 55%, aortic sclerosis History of Present Illness HPI: 86 yo male who fell as he was going to the bathroom around 1230 this morning. He was at [facility] after a hosptialization for cellullitis on both legs. All of the history comes from the who was at the bedside since the pt is very hard of hearing and didn't answer any of the questions. The pain is only present when he is moving the left leg. When he fell , the pt landed on his left side, questionable injury to the head. He was doing well on rehab. Objective Vital signs: Temperature 96.0 F L 01/17/17 08:00 Pulse Rate 95 01/17/17 08:31 Respiratory Rate 18 01/17/17 08:00 Blood Pressure 152/63 H 01/17/17 08:00 Pulse Oximetry 91 01/17/17 08:00 Height/Weight/BMI: Height 1.8 m Weight 97 kg Body Mass Index 28.8 - Constitutional Present: well nourished, well developed - Routine HEENT Exam Eye: Present: EOMI ENT: Present: mucous membranes moist, dentition normal - Routine Respiratory Exam Present: CTA bilaterally. Absent: wheezes - Routine Cardiovascular Exam Present: RRR. Absent: murmur - Routine Abdominal Exam Present: soft, normoactive bowel sounds, non distended. Absent: tenderness - Routine Extremities Exam Present: normal capillary refill Comments: Left leg with post op changes, no sig edema or inflammation. - Routine Skin Exam Present: dry, warm - Routine Neurological Exam Present: alert, oriented X3, CN II-XII intact - Routine Lymphatic Exam Lymphatic: Absent: adenopathy - Routine Psychiatric Exam Present: normal affect Hospital Course This is a general summary of the patient's hospital course. For more details refer to the complete medical record. Hospital course: Assessment Intertrochateric fracture of left femur-surgically repaired 01/12/2017 Anemia Creatinine 1.9, uncertain if acute versus chronic (Suspect Stage III CKD and ( Poor urine output since admission Fall secondary to loss of footing CAD without anginal symptoms CV disease with Hx CVA Vascular dementia Orthostatic hypotension Depression Macular degeneration Chronic venous insufficiency Recent Stage I pressure ulcer of left buttock Plan We'll give a 250 cc normal saline bolus followed by Lasix 20 mg IV. If the patient is not able to void, Will need to place Carvajal. Check CBC and basic metabolic profile tomorrow Try to obtain baseline creatinine from primary care office 01/17/17 Underwent surgical repair on 01/12/17. Pain treated with oral medication. Did have some post op hypoxemia, currently on 1 liter nc and stable. Post op urinary retention, initially tried to remove cath,but unable to urinate. Currently with cath and will be discharged with Carvajal and flowmax. Mild post op anemia with hgb 7.7 on 01/15 which required 1 uPRBC. Creat stable. Ortho recommendations to resume asa and plavix. Refer back to Dr Attila Jenkins. Grace for pain. Recommend recheck cbc on 01/19. Leon Kay MD. Time spent with patient: discharge greater than 30 minutes DVT Prophylaxis: other (asa, plavix) Discharge Plan - Discharge Disposition Disposition: 03 To SNU Not [facility] (SNF) *Condition: Stable Reason For Visit (Visit label in EMR): Left hip fracture - Discharge Medications *Discharge Medications: New Hydrocodone/APAP 5/325 [[place] 5/325] 1 - 2 tab PO Q6H PRN #30 tab PRN Reason: Pain Tamsulosin [Flomax] 0.4 mg PO HS cap Senna + Docusate [Senna Plus Tablet] 1 tab PO BID tab Continue Sertraline [Zoloft] 25 mg PO DAILY Clopidogrel Bisulfate [Clopidogrel] 75 mg PO DAILY Aspirin Chewable [ASA] 81 mg PO DAILY Potassium Chloride [Klor-Con 10] 10 meq PO DAILY Swizzle Solution 5Ml [Lidocaine/Maalox/Benadryl Soln] 30 ml PO Q6H Vit A/Vit C/Vit E/Zinc/Copper [I-Cassandra Protect Tablet] 1 each PO DAILY Magnesium Hydroxide [Milk of Magnesia] 400 mg PO PRN PRN PRN Reason: Constipation Furosemide [Lasix] 1 tab PO DAILY - Referrals/Follow Up *Referrals/Follow Up: Jenaro Valencia PA [Physician Six Sigma Black Belt Engineer] - 3 Weeks - Patient Handouts Patient Handouts: [facility] Ortho Postop Instructions
--- NOTE | 2017-01-17 10:33 | Extended Care Facility Orders ---
<Carissa Johnson V - Last Filed: 01/17/17 10:32> Admission Orders Admit to:: [facility] Allergies/Adverse Reactions: Allergies No Known Allergies Allergy (Verified 01/12/17 01:20) Admitting Diagnosis: Left hip fracture Admitting Physician: Leon Kya MD Attending Physician: Leon Kay MD Anticiapted Length of Stay: 30 days or less Rehab Potential: good Rehab Prognosis: good Diet: 01/13/17 Breakfast Regular Diet [DIET] Diet Modifications: May use Facility Protocol or Standing Orders: Yes May have flu vaccine: Yes Evaluations/Treatment: PT, OT [facility] Certification: I certify that SNF services are required to be given on an Inpatient basis because of the patients need for [place] [facility] care on a continuing basis for the condition(s) for which he/she received inpatient hospital services prior to his/her transfer to the SNF. SNF inpatient care is necessary for the following reasons Indication for [facility]: Other (PT,OT) - Additional Information In Event of Arrest: Do Not Start CPR Referrals: Jenaro Valencia PA [Physician Media Marketing Director] - 3 Weeks Additional Orders: Routine Carvajal catheter care. Bladder retraining in 1 week and remove Carvajal catheter. Weight bearing as tolerated <Leon Kay - Last Filed: 01/17/17 10:46> Admission Orders Admitting Diagnosis: Left hip fracture Admitting Physician: Leon Kay MD Attending Physician: Leon Kay MD Diet: 01/13/17 Breakfast Regular Diet [DIET] Diet Modifications: [facility] Certification: I certify that SNF services are required to be given on an Inpatient basis because of the patients need for [place] [facility] care on a continuing basis for the condition(s) for which he/she received inpatient hospital services prior to his/her transfer to the SNF. SNF inpatient care is necessary for the following reasons
[2017-01-17] MEDS: HYDROCODONE/APAP 5mg/325mg TABLET PO PRN (11:35)
[2017-01-17 12:21] VITALS: BP 132/64; PULSE 101; RESP 16; O2SAT 98
== END 2017-01-17 14:02 | DRG 481 ==
LOC: ED 01:01 → SRG 03:20 → SUATTDRO 03:20 → SRG 03:30
PROVIDERS: ADMIT Internal Medicine; ATTEND Family Medicine